=== PATIENT | male | born 1990 | race Caucasian/White ===

== ENCOUNTER 2020-12-21 06:18 | Inpatient (IN) | payer OTHER, SELFPAY ==
[2020-12-21] VITALS (92 sets, daily range): BP systolic 103–154; BP diastolic 50–98; PULSE 97–165; RESP 16–45; TEMP 36.1–36.8; O2SAT 89–98
--- NOTE | 2020-12-21 06:19 | ED.GENADUL_ITS ---
Discharge Plan Disposition Patient Disposition: [facility] INPATIENT Condition: Serious Discharge Details Clinical Impression: Alcohol withdrawal, Alcoholic hepatitis, Hypomagnesemia, Hypokalemia Primary Care Provider: None,None ED Provider: Abundio Bearden Frederica Jesús and New Rx's Prescriptions: No Action ibuprofen [Motrin] 800 mg Tablet 800 mg PO BID PRN PRNRF: 0 prednisone 20 mg Tablet 20 mg PO BID RF: 0 Medical Decision Making Patient presenting with acute alcohol withdrawal with evidence of alcohol hepatitis given his scleral icterus. IV established and banana bag is started. Laboratory studies sent and EKG done. 2 mg Ativan IV given initially. Did not proceed with phenobarbital given concern for liver dysfunction. EKG is unremarkable. Laboratory studies significant for hypomagnesemia, hypokalemia, thrombocytopenia, elevated LFTs. He has responded to the 2mg of Ativan. Plan a second dose of 2 mg Ativan. Case discussed with hospitalist. Patient accepted for admission to the ICU for further management. Lab Data Lab results reviewed: Yes I reviewed the patient's lab results. ECG Data Attestation: I personally reviewed and interpreted this ECG (s) as follows: Prior ECG tracings: not available for review Interpretation: see EKG HPI General Mode of arrival: ambulatory . Date/Time Provider Initiated Documentation: 12/21/20 06:18 . Limitations to Documentation: no limitations . Information obtained by: patient, family and RN notes reviewed . HPI Narrative: Patient is brought in for evaluation of alcohol withdrawal. Patient just moved up here to be with his brother this week. He has chronic neck pain with left upper extremity radiculopathy for which he takes ibuprofen, cyclobenzaprine, prednisone. He also at this point has been drinking almost a case of beer a day over the last month or so. Prior to that he was drinking half a case. Over the last [address] has cut [address] back to the point where he only had 1-2 yesterday. His brother has noticed that his eyes are turning yellow. This morning patient is extremely anxious, nauseated, shaky. He denies any chest pain or shortness of breath. He denies fever. He has no vomiting or abdominal pain. Denies any significant medical problems other than the neck problem. Denies any other drug use. Does not smoke but he does chew tobacco. Related Data Home Medications Medication Instructions Recorded Confirmed ibuprofen [Motrin] 800 mg PO BID PRN PRN 12/21/20 12/21/20 prednisone 20 mg PO BID 12/21/20 12/21/20 Allergies Allergy/AdvReac Type Severity Reaction Status Date / Time cefaclor [From Ceclor] Allergy Skin Rash Unverified 12/21/20 06:32 Review of Systems Narrative: 02/05 Review of Systems completed and is negative except as stated above in HPI (Systems reviewed: Const, Eyes, ENT, Resp, CV, GI, , MSK, Skin, Neuro) [facility] Medical History Cervical radiculopathy Surgical History No significant past surgical history Social History Smoking/Tobacco Use Status: Current-Occasional Tobacco Type: smokeless tobacco Smoking risk assessment performed?: Yes Alcohol Intake: current Alcohol Intake frequency: 3 or more drinks per day Alcohol type: beer and hard liquor Drug use: Never Substance use type: does not use Do you feel safe at home: Yes Do you feel safe in your relationship?: Yes Exam Narrative Exam Narrative: Const: WDWN male quite anxious and jittery. HEENT: NC/AT. Normal facial exam. Eyes: Normal conjunctiva but scleral icterus. Neck: Supple. Trachea midline. Lungs: Normal respiratory effort. Lungs are clear. Cor: RRR without murmur/gallop. Good radial pulses. GI: Soft. NT/ND. Neuro: A+O x 3. Normal speech, mentation, gait. Cranial nerves II - XII grossly intact. No gross motor or sensory deficit. Ext: No C/C/E. Skin: Warm and dry without rash. Critical Care Time Critical Care Time Critical Care Time: Yes Total Critical Care Time: 45 Attestation: Upon my evaluation, this patient had a high probability of imminent or life- threatening deterioration, which required my direct attention, intervention, and personal management. I have personally provided 45 minutes of critical care time exclusive of time spent on separately billable procedures. Time includes review of laboratory data, radiology results, discussion with consultants, and monitoring for potential decompensation. Interventions were performed as documented above.
--- NOTE | 2020-12-21 06:45 | RT.EKG_ITS ---
APPROVED REPORT Exam: Resting ECG Reason for Exam: withdrawal Patient Location: E HR:98 bpm ECG Measurements Heart Rate 98 AXIS WA 197 P 41 QRSd 94 QRS 19 QT 359 T 6 QTc 459 Conclusion Sinus rhythm...normal P axis, V-rate 60- 99 Borderline prolonged WA interval...WA >197, V-rate 91-120 Normal [place] I have reviewed and interpreted ECG and agree with software generated interpretation.
[2020-12-21 07:00] LABS: Abs Immature Grans 0.02 10^3/uL (0.0-0.06); Absolute Basophil Count 0.09 10^3/uL (0.0-0.2); Absolute Eosinophil Count 0.39 10^3/uL (0.0-0.7); Absolute Lymphocyte Count 1.85 10^3/uL (1.2-3.4); Absolute Monocyte Count 0.88 10^3/uL (0.1-0.8); Absolute Neutrophil Count 3.66 10^3/uL (1.2-6.7); Basophils % 1.3; Eosinophils % 5.7; HCT 46.2 % (40.0-50.0); HGB 15.9 g/dL (13.5-17.5); Immature Grans % 0.3; Lymphocytes % 26.9; MCHC 34.4 % (32.0-36.0); MCV 98.9 fL (80-95); MPV 9.5 fL (8.0-11.0); Monocytes % 12.8; Nucleated RBC 0 %; Platelet Count 124 10^3/uL (130-400); RBC 4.67 10^6/uL (4.36-5.78); RDW 12.1 % (11.8-14.1); RDW-SD 44.1 fL; WBC 6.89 10^3/uL (4.4-10.8)
[2020-12-21] MEDS: LORazepam 2 MG/ML VIAL IVP ×4 (07:00→09:46)
[2020-12-21 07:02] LABS: Bilirubin Small (Negative); Blood Negative (Negative); Clarity Clear (Clear); Glucose Negative (Negative); Ketones Trace mg/dL (Negative); Leukocyte Esterase Negative (Negative); Nitrite Negative (Negative); Specific Gravity 1.025 (1.005-1.025); Urobilinogen >=8.0 EU/dL (Up TO 0.2); pH 6.5 (5-8)
[2020-12-21] MEDS: Thiamine 200 MG/2 ML VIAL (07:10)
[2020-12-21] MEDS: Folic Acid 50 MG/10 ML VIAL (07:10)
[2020-12-21] MEDS: MAGNESIUM SULFATE 8.12 MEQ, MULTIVITAMIN 10 ML, THIAMINE 100 MG, FOLIC ACID 1 MG in Nor... 168.867 MG IV (07:11)
[2020-12-21 07:12] LABS: INR 1.2 (0.9-1.1); Prothrombin Time 12.2 sec (9.3-11.0)
[2020-12-21 07:15] LABS: Magnesium 1.2 mg/dL (1.8-2.4)
[2020-12-21 07:18] LABS: *AMPHETAMINES SCREEN URINE Negative (Negative); *BARBITURATES SCREEN URINE Negative (Negative); *BENZODIAZEPINES SCREEN URINE Negative (Negative); ALT 79 U/L (16-63); AST 111 U/L (15-37); Albumin 3.4 g/dL (3.4-5.0); Alkaline Phosphatase 168 U/L (46-116); Anion Gap 9.6 mmol/L (3-11); BUN 11 mg/dL (7-18); Bilirubin, Direct 1.7 mg/dL (0.0-0.2); Bilirubin, Total 3.4 mg/dL (0.2-1.0); CO2 28.4 mmol/L (21.0-32.0); CREATININE 0.8 mg/dL (0.70-1.30); Calcium 8.9 mg/dL (8.5-10.1); Cannabinoids THC Negative (Negative); Chloride 102 mmol/L (98-107); Cocaine Screen,Urine Negative (Negative); Glucose 98 mg/dL (74-106); Lipase 91 U/L (73-393); METHADONE URINE SCREEN Negative (Negative); OPIATES URINE SCREEN Negative (Negative); Potassium 3.1 mmol/L (3.5-5.1); Sodium 140 mmol/L (136-145); Total Protein 7.7 g/dL (6.4-8.2)
[2020-12-21 07:20] LABS: ETHANOL BLOOD < 3.0 mg/dL (<3); Tricyclic Antidepressants Positive (Negative)
[2020-12-21 08:06] LABS: Source Nasal/Nares
[2020-12-21] MEDS: Midazolam 2 MG/2 ML VIAL 1 MG IVP (08:24)
[2020-12-21 08:58] LABS: COVID-19 PCR Negative (Negative)
[2020-12-21] MEDS: Normal Saline Flush 10 ML SYR IVP ×5 (09:46→19:38)
[2020-12-21] MEDS: Potassium Chloride 20 MEQ TABCR 40 MEQ PO (09:47)
[2020-12-21] MEDS: predniSONE 20 MG TAB PO (09:47)
--- NOTE | 2020-12-21 09:59 | W.PM.HP.N ---
Date of service: 12/21/20 Time of Service: 09:30 Assessment and Plan Assessment and plan (1) Alcohol withdrawal: Status: Acute Assessment and plan: Admitted to ICU on CIWA with prn lorazepam and scheduled librium. Required diazepam. However, symptoms have escalated to the point that we have to consider alternative strategies. The patient is now in 4 pt restraints and combative. Phenobarb is not absolutely contraindicated based on his mild alcoholic hepatitis with discriminant function score of 8. Will transition to low dose boluses of phenobarbital. Continue to monitor in the ICU. (2) Alcoholic hepatitis: Status: Acute Assessment and plan: Discriminant function score of 8.9 - does not qualify for steroids. Will monitor LFTs. Obtain hepatitis studies and US RUQ when more behaviorally appropriate. (3) Hypokalemia: Status: Acute Assessment and plan: Replete, recheck in am (4) Hypomagnesemia: Status: Acute Assessment and plan: Replete, recheck in am. (5) Cervical radiculopathy: Status: Chronic Assessment and plan: Continue home therapy (6) DVT prophylaxis: Status: Acute Assessment and plan: SC lovenox (7) Discharge planning issues: Status: Acute Assessment and plan: Full code total critical Care time 60 minutes. History of Present Illness History of Present Illness Chief Complaint: Alcohol withdrawal Narrative: Mr Jordan is 29 year old male with PMHx of alcohol abuse without known h/o prior EtOH w/d seizures and who is undergoing treatment for LUE radiculopathy, who has been trying to decrease his alcohol intake and had enrolled into a program with a sponsor, who cannot clearly tell me when his last drink was, who presented to [facility] ED today with symptoms of alcohol withdrawal (tremors, confusion, anxiety) and a CIWA score of 31. Because he was jaundiced and had evidence of alcoholic hepatitis on labs, he was initiated on CIWA with prn lorazepam rather than phenobarbital in the ED. ICU admission was requested. The patient is A&Ox1 at the time of my evaluation. He is able to tell me he is vaccinated (very early on, got two shots), that he is having L-sided neck and arm pain. He denies chest pain, shortnes sof breath, abdominal pain, or nausea. He has been hallucinating, both auditory and visually. History is limited due to the patient having difficulty focusing. Review of Systems All systems reviewed & are unremarkable except as noted in HPI and below [facility] Medical History (Updated 12/21/20 @ 11:07 by Yasmine Loyola MD) Alcohol abuse Cervical radiculopathy Surgical History No significant past surgical history Family History (Updated 12/21/20 @ 10:26 by Yasmine Loyola MD) Other Family history unobtainable due to patient's condition Social History (Updated 12/21/20 @ 10:27 by Yasmine Loyola MD) Smoking/Tobacco Use Status: Current-Occasional Tobacco Type: smokeless tobacco Smoking risk assessment performed?: Yes Alcohol Intake: current Alcohol Intake frequency: 3 or more drinks per day Alcohol type: beer and hard liquor Details: The patient cannot tell me when his last drink was. Drug use: Never Substance use type: does not use Do you feel safe at home: Yes Do you feel safe in your relationship?: Yes Meds Allergies and Home Medications Allergies Allergy/AdvReac Type Severity Reaction Status Date / Time cefaclor [From Ceclor] Allergy Skin Rash Unverified 12/21/20 06:32 Home Medications Medication Instructions Recorded Confirmed Type cyclobenzaprine [Flexeril] mg 12/21/20 History ibuprofen [Motrin] 800 mg PO BID PRN PRN 12/21/20 12/21/20 History prednisone 20 mg PO BID 12/21/20 12/21/20 History Exam Narrative Exam Narrative: General: Obese male who is tremulous, agitated, trying to get out of bed, A&Ox1, having difficulty focusing on questions and whose answers are not always sensical, hallucinating Neurological: A&Ox1, tremulous, delirious Psychiatric: agitated, violent Skin: wright vs Jaundiced HEENT: Atraumatic, normocephalic, EOMI, dry MM, slight scleral icterus, clear oropharynx, poor dental hygiene, no submandibular or cervical lymphadenopathy, no goiter or JVD Cardiovascular: RRR, tachycardic, no m/r/g Lungs: CTAB Gastrointestinal: soft, nontender, nondistended Genitourinary: deferred Extremities: no edema BLE's, 2+ pedal pulses BLEs Results Imaging Abdominal ultrasound report/results: pending Additional studies: EKG: ST, HR 98, no acute ischemia Labs Result diagrams: 12/21/20 06:50 12/21/20 06:50 Labs: Laboratory Results - last 24 hr 12/21/20 12/21/20 12/21/20 06:50 06:50 06:50 WBC RBC Hgb Hct MCV MCH MCHC RDW Plt Count MPV Immature Gran % Neutrophils % Lymphocytes % Monocytes % Eosinophils % Basophils % Nucleated RBC % Absolute Neutrophils Absolute Lymphocytes Absolute Monocytes Absolute Eosinophils Absolute Basophils PT 12.2 H INR 1.2 H Sodium 140 Potassium 3.1 L Chloride 102 Carbon Dioxide 28.4 Anion Gap 9.6 BUN 11 Creatinine 0.8 Estimated GFR/1.73 m2 >= 60.00 Glucose 98 Calcium 8.9 Magnesium 1.2 L Total Bilirubin 3.4 H Conjugated Bilirubin 1.7 H AST 111 H ALT 79 H Alkaline Phosphatase 168 H Total Protein 7.7 Albumin 3.4 Lipase 91 Urine Color Urine Clarity Urine pH Ur Specific [place] Urine Protein Urine Ketones Urine Blood Urine Nitrite Urine Bilirubin Urine Urobilinogen Ur Leukocyte Esterase Urine Glucose Urine Opiates Screen Urine Methadone Screen Ur Barbiturates Screen Ur Tricyclics Screen Ur Amphetamines Screen U Benzodiazepines Scrn Urine Cocaine Screen Ur THC Screen Ethyl Alcohol < 3.0 COVID-19 Source SARS-CoV-2 (PCR) 12/21/20 12/21/20 12/21/20 06:50 06:50 06:50 WBC 6.89 RBC 4.67 Hgb 15.9 Hct 46.2 MCV 98.9 H MCH 34.0 H MCHC 34.4 RDW 12.1 Plt Count 124 L MPV 9.5 Immature Gran % 0.3 Neutrophils % 53.0 Lymphocytes % 26.9 Monocytes % 12.8 Eosinophils % 5.7 Basophils % 1.3 Nucleated RBC % 0 Absolute Neutrophils 3.66 Absolute Lymphocytes 1.85 Absolute Monocytes 0.88 H Absolute Eosinophils 0.39 Absolute Basophils 0.09 PT INR Sodium Potassium Chloride Carbon Dioxide Anion Gap BUN Creatinine Estimated GFR/1.73 m2 Glucose Calcium Magnesium Total Bilirubin Conjugated Bilirubin AST ALT Alkaline Phosphatase Total Protein Albumin Lipase Urine Color Yellow Urine Clarity Clear Urine pH 6.5 Ur Specific [place] 1.025 Urine Protein Negative Urine Ketones Trace H Urine Blood Negative Urine Nitrite Negative Urine Bilirubin Small H Urine Urobilinogen >=8.0 Ur Leukocyte Esterase Negative Urine Glucose Negative Urine Opiates Screen Negative Urine Methadone Screen Negative Ur Barbiturates Screen Negative Ur Tricyclics Screen Positive A Ur Amphetamines Screen Negative U Benzodiazepines Scrn Negative Urine Cocaine Screen Negative Ur THC Screen Negative Ethyl Alcohol COVID-19 Source SARS-CoV-2 (PCR) 12/21/20 07:58 WBC RBC Hgb Hct MCV MCH MCHC RDW Plt Count MPV Immature Gran % Neutrophils % Lymphocytes % Monocytes % Eosinophils % Basophils % Nucleated RBC % Absolute Neutrophils Absolute Lymphocytes Absolute Monocytes Absolute Eosinophils Absolute Basophils PT INR Sodium Potassium Chloride Carbon Dioxide Anion Gap BUN Creatinine Estimated GFR/1.73 m2 Glucose Calcium Magnesium Total Bilirubin Conjugated Bilirubin AST ALT Alkaline Phosphatase Total Protein Albumin Lipase Urine Color Urine Clarity Urine pH Ur Specific [place] Urine Protein Urine Ketones Urine Blood Urine Nitrite Urine Bilirubin Urine Urobilinogen Ur Leukocyte Esterase Urine Glucose Urine Opiates Screen Urine Methadone Screen Ur Barbiturates Screen Ur Tricyclics Screen Ur Amphetamines Screen U Benzodiazepines Scrn Urine Cocaine Screen Ur THC Screen Ethyl Alcohol COVID-19 Source Nasal/Nares SARS-CoV-2 (PCR) Negative Last Vital Signs Temp 36.6 C 12/21/20 06:22 Pulse 102 H 12/21/20 07:45 Resp 17 12/21/20 08:00 BP 146/97 H 12/21/20 07:30 Pulse Ox 95 12/21/20 07:40
[2020-12-21] MEDS: diazePAM 10 MG/2 ML SYR IVP ×3 (10:12→10:37)
[2020-12-21] MEDS: chlordiazePOXIDE 25 MG CAP PO (10:24)
[2020-12-21] MEDS: PHENobarbital 130 MG/ML VIAL IVP ×13 (10:55→23:29)
[2020-12-21] MEDS: Enoxaparin 40 MG/0.4 ML SYR SC (11:43)
[2020-12-21] MEDS: Haloperidol 5 MG/ML VIAL 4 MG IM (13:18)
[2020-12-21] MEDS: Bacitracin 1 PACKET (13:40)
[2020-12-21] MEDS: MAGNESIUM SULFATE 4 GM/100 ML BAG IVPB (13:53)
[2020-12-21] MEDS: Lactated Ringers 1,000 ML 150 ML IV ×2 (13:54→21:34)
[2020-12-21] MEDS: Pantoprazole 40 MG VIAL IVP (17:34)
[2020-12-21] MEDS: methylPREDNISolone SUCC 40 MG VIAL 20 MG IVP (19:37)
[2020-12-21] MEDS: Bacitracin 1 PACKET TP (19:38)
[2020-12-21] MEDS: Ketorolac 30 MG/ML VIAL IVP (19:38)
[2020-12-22] VITALS (45 sets, daily range): BP systolic 116–149; BP diastolic 74–95; PULSE 93–128; RESP 14–27; TEMP 36–37.2; O2SAT 90–96
--- NOTE | 2020-12-22 | DI.US_ITS ---
Exam(s) US ABDOMEN EXAM: US ABDOMEN CLINICAL HISTORY: transaminitis TECHNIQUE: Ultrasound abdomen performed using standard protocol. COMPARISON: No exams were available for comparison FINDINGS: Examination limited due to decreased patient cooperation. ABDOMINAL AORTA AND IVC: Visualized portions normal caliber. PANCREAS: Normal where visualized. LIVER: There is diffuse increased echogenicity of the liver consistent with fatty infiltration. The liver measures 18.3 cm long. Hepatopedal flow in the Portal Vein. GALLBLADDER: No evidence of cholelithiasis. No evidence of wall thickening. No pericholecystic fluid identified. BILIARY SYSTEM: Common bile duct measures < 7 mm. No intrahepatic biliary ductal dilation. CRISTINA'S SIGN: Negative. KIDNEYS: Kidneys are symmetric in size. No evidence of renal calculi. No evidence of hydronephrosis. No renal mass or cyst identified. SPLEEN: The spleen measures 14.1 cm long. ASCITES: None seen. IMPRESSION: 1. Hepatosplenomegaly. 2. Hepatic steatosis. DATA REPOSITORY:
[2020-12-22] MEDS: Normal Saline Flush 10 ML SYR IVP ×3 (00:16→21:21)
[2020-12-22] MEDS: PHENobarbital 130 MG/ML VIAL IVP ×6 (00:16→05:36)
[2020-12-22] MEDS: Lactated Ringers 1,000 ML 150 ML IV ×3 (02:15→22:12)
[2020-12-22] MEDS: dexmedeTOMidine IN 0.9 % NACL 400 MCG/100 ML BTL 5.1 MCG IVPB (06:07)
[2020-12-22 06:43] LABS: Abs Immature Grans 0.05 10^3/uL (0.0-0.06); Absolute Basophil Count 0.03 10^3/uL (0.0-0.2); Absolute Lymphocyte Count 1.55 10^3/uL (1.2-3.4); Absolute Monocyte Count 1.02 10^3/uL (0.1-0.8); Absolute Neutrophil Count 6.08 10^3/uL (1.2-6.7); Basophils % 0.3; HCT 42.4 % (40.0-50.0); HGB 14.4 g/dL (13.5-17.5); Immature Grans % 0.6; Lymphocytes % 17.8; MPV 9.5 fL (8.0-11.0); Monocytes % 11.7; Neutrophils % 69.6; Nucleated RBC 0 %; Platelet Count 134 10^3/uL (130-400); RBC 4.24 10^6/uL (4.36-5.78); RDW 12.2 % (11.8-14.1); RDW-SD 44.9 fL; WBC 8.73 10^3/uL (4.4-10.8)
[2020-12-22 07:00] LABS: ALT 66 U/L (16-63); AST 78 U/L (15-37); Alkaline Phosphatase 138 U/L (46-116); Anion Gap 11.3 mmol/L (3-11); BUN 13 mg/dL (7-18); Bilirubin, Direct 1.4 mg/dL (0.0-0.2); Bilirubin, Total 2.9 mg/dL (0.2-1.0); CO2 24.7 mmol/L (21.0-32.0); CREATININE 0.8 mg/dL (0.70-1.30); Calcium 8.2 mg/dL (8.5-10.1); Chloride 106 mmol/L (98-107); Glucose 100 mg/dL (74-106); Potassium 3.5 mmol/L (3.5-5.1); Sodium 142 mmol/L (136-145); Total Protein 7.1 g/dL (6.4-8.2)
[2020-12-22 07:47] LABS: Folate 12.2 ng/mL (8.6-20.0); Vitamin B12 1157 pg/mL (193-986)
--- NOTE | 2020-12-22 08:00 | RT.EKG_ITS ---
APPROVED REPORT Exam: Resting ECG Reason for Exam: QT prolongation Patient Location: I HR:103 bpm ECG Measurements Heart Rate 103 AXIS AL 206 P 39 QRSd 88 QRS 44 QT 349 T 19 QTc 458 Conclusion Sinus tachycardia...rate> 99 Prolonged AL interval...AL >205, V-rate 91-120
--- NOTE | 2020-12-22 08:14 | PGE_ITS ---
Date of Service Date of service: 12/22/20 Time of Service: 10:27 Assessment and Plan Assessment and plan (1) Alcohol withdrawal: Status: Acute Assessment and plan: Maxed out on phenobarbital and, therefore, should not seize. Will manage symptoms with antipsychotics this am. MOnitor respiratory status - may require respiratory support. Qualifiers: Complication of substance-induced condition: with perceptual disturbance Qualified Code(s): F10.232 - Alcohol dependence with withdrawal with perceptual disturbance (2) Alcoholic hepatitis: Status: Acute Assessment and plan: LFTs are actually better. Discriminant function score indicates good prognosis. Await hepatitis studies. Await read of US RUQ. (3) Hypokalemia: Status: Acute Assessment and plan: Resolved, recheck in am (4) Hypomagnesemia: Status: Acute Assessment and plan: Resolved, recheck in am. (5) Cervical radiculopathy: Status: Chronic Assessment and plan: Continue home therapy Will taper steroid dose (6) DVT prophylaxis: Status: Acute Assessment and plan: SC lovenox (7) Discharge planning issues: Status: Acute Assessment and plan: Full code total critical Care time [address] Hartley Subjective Subjective Interval history since last seen: Maxed out on phenobarbital. Ended up on precedex gtt at 6 am. Since then, asleep. Changed over to zyprexa. The patient is not able to answer questions this morning. He is asleep, arousable to sternal rub. Exam Narrative Exam Narrative: General: Obese male, no longer tremulous, asleep, arousable to sternal rub, not awake enough to answer questions or follow comman ds, no in crease in respiratory effort noted, breathing regularly. Does have some abdominal breathing. HEENT: EOMI, dry MM Cardiovascular: RRR, less tachycardic (low 100s), no m/r/g Lungs: CTAB Gastrointestinal: soft, nontender, nondistended Genitourinary: has a amin Extremities: no edema BLE's, 2+ pedal pulses BLEs, restraints on all 4 extremities Objective Last Vital Signs Temp 36.8 C 12/21/20 23:25 Pulse 109 H 12/22/20 06:00 Resp 20 12/22/20 06:00 BP 138/77 12/22/20 06:00 Pulse Ox 92 12/22/20 06:00 Laboratory Results - last 24 hr 12/21/20 12/22/20 12/22/20 07:58 06:27 06:27 WBC RBC Hgb Hct MCV MCH MCHC RDW Plt Count MPV Immature Gran % Neutrophils % Lymphocytes % Monocytes % Eosinophils % Basophils % Nucleated RBC % Absolute Neutrophils Absolute Lymphocytes Absolute Monocytes Absolute Eosinophils Absolute Basophils Sodium 142 Potassium 3.5 Chloride 106 Carbon Dioxide 24.7 Anion Gap 11.3 H BUN 13 Creatinine 0.8 Estimated GFR/1.73 m2 >= 60.00 Glucose 100 Calcium 8.2 L Magnesium 2.0 Total Bilirubin 2.9 H Conjugated Bilirubin 1.4 H AST 78 H ALT 66 H Alkaline Phosphatase 138 H Total Protein 7.1 Albumin 3.0 L Vitamin B12 1157 H Folate 12.2 SARS-CoV-2 (PCR) Negative 12/22/20 06:27 WBC 8.73 RBC 4.24 L Hgb 14.4 Hct 42.4 MCV 100.0 H MCH 34.0 H MCHC 34.0 RDW 12.2 Plt Count 134 MPV 9.5 Immature Gran % 0.6 Neutrophils % 69.6 Lymphocytes % 17.8 Monocytes % 11.7 Eosinophils % 0.0 Basophils % 0.3 Nucleated RBC % 0 Absolute Neutrophils 6.08 Absolute Lymphocytes 1.55 Absolute Monocytes 1.02 H Absolute Eosinophils 0.00 Absolute Basophils 0.03 Sodium Potassium Chloride Carbon Dioxide Anion Gap BUN Creatinine Estimated GFR/1.73 m2 Glucose Calcium Magnesium Total Bilirubin Conjugated Bilirubin AST ALT Alkaline Phosphatase Total Protein Albumin Vitamin B12 Folate SARS-CoV-2 (PCR)
[2020-12-22] MEDS: OLANZapine 10 MG VIAL 5 MG IM ×2 (09:28→21:21)
[2020-12-22] MEDS: methylPREDNISolone SUCC 40 MG VIAL 20 MG IVP (09:28)
[2020-12-22] MEDS: MULTIVITAMIN 10 ML, THIAMINE 100 MG, FOLIC ACID 1 MG in DEXTROSE 5%-0.45% SALINE 1,000 ML 150 ML IV (09:29)
[2020-12-22] MEDS: Water,Injection,Sterile 10 ML VIAL (09:29)
--- NOTE | 2020-12-22 10:16 | PUCC_ITS ---
General Date of Service Date of service: 12/22/20 Time of Service: 08:00 Reason for Admission to ICU: Alcohol withdrawal and agitation Assessment and Plan Assessment and plan (1) Alcohol withdrawal: Status: Acute Qualifiers: Complication of substance-induced condition: with perceptual disturbance Qualified Code(s): F10.232 - Alcohol dependence with withdrawal with perceptual disturbance (2) Alcoholic hepatitis: Status: Acute Qualifiers: Ascites presence: without ascites Qualified Code(s): K70.10 - Alcoholic hepatitis without ascites (3) Macrocytosis: Status: Acute (4) Coagulopathy: Status: Acute (5) Hypokalemia: Status: Acute (6) Hypomagnesemia: Status: Acute (7) Abnormal albumin: Status: Acute (8) Phenobarbital toxicity: Status: Acute Qualifiers: Encounter type: initial encounter Injury intent: accidental or unintentional Qualified Code(s): T42.3X1A - Poisoning by barbiturates, accidental (unintentional), initial encounter (9) Alcohol withdrawal hallucinosis: Status: Acute (10) Agitation: Status: Acute Assessment and plan: This is a 29-year-old gentleman who was admitted to the ICU for agitation and alcohol withdrawal in the setting of attempting to cut down on alcohol intake. He does not have a history of alcohol withdrawal seizures however on admission did admit to hallucinations consistent with the development of alcoholic hallucinations. He was initially treated with significant amounts of benzodiazepines and was subsequently treated with very high doses of phenobarbital (30 mg/kg). Although phenobarbital is not contr aindicated in liver disease conservative dosing must be employed as well as obtaining phenobarbital levels in order to avoid toxicity or overdose. Based on the patient's phenobarbital level this morning he was overdosed however his vital signs are stable and the only manifestation of this is continued sedation. In patients with liver dysfunction on maximum dose of phenolbarbital would be 15 to 20 mg/kg. He is certainly treated for any alcohol withdrawal and thus any continued agitation likely reflects an alternative process that should be managed differently. Recommendations Pulmonary: No acute concerns - maintaining airway currently Cardiac: No acute concerns QTc is ok this morning Renal: - recommend checking phos level - at risk for refeeding syndrome given EtOH use Hypokalemia - recommend repletement to 4.0 Hypomagnesemia - recommend repletement to 2.0 Hypocalcemia - continue to monitor I&O: Intake & Output 12/19/20 12/20/20 12/21/20 12/22/20 23:59 23:59 23:59 23:59 Intake Total 2478.2 / 2478.2 1702.5 / 1702.5 Output Total 1175 / 1175 400 / 400 Balance 1303.2 / 1303.2 1302.5 / 1302.5 Weight 102 kg 102.2 kg Daily Fluid Goal:: Even GI Nutrition: Nutrition - would not recommend any further banana bags - typically no further benefit after 1 bag - recommend changing fluids to LR 75cc - recommend PO thiamine, folate and MVI when able to swallow - recommend diet when safe Alcoholic Hepatitis - Madri score is 9 on admission, no indications for glucocorticoid therapy - would discontinue methyprednisilone as this will worsen his agitation - outpatient hepatology consultation - await final U/S read Albumin Deficiency - PO intake when safe Infectious Disease: No acute concerns - aspiration precautions Hematologic: Macrocytosis - MVI when able Coagulopathy - due to liver failure - PO diet when able Neurologic: Alcohol Withdrawl - s/p supratherapeutic doses of phenobarbital - do not give any further doses of either phenobarbital or benzo's - recheck phenobarb level tomorrow - would stop Precedex drip - recommend IV Zyprexa 5mg bid as needed - recommend melatonin at night once patient is less sedated Agitation/Delirium - again, as above, avoid further benzo's and phenobarb - stop Precedex - Zyprexa bid - delirium prevention - lights on during day and off at night, melatonin at night if patient more awake - recommend discontinuing methylprednisilone - discontinue 4 point restraints Endocrine: No acute concerns - daily glucose Lines: PIV Prophylaxis: Lovenox for DVT ppx No clear indication for GI ppx - would discontinue I spent a total of 45 minutes with this patient including bedside assessment, coordination of care with the hospitalist service, rounding with nursing and respiratory therapy, chart review and documentation. Code Status: Resuscitation Status Full Code Subjective Critical and life-threatening events over the past 24 hours: This is a 29-year-old gentleman with a medical history of alcohol abuse with no known prior history of withdrawal seizures who has been actively trying to decrease his alcohol intake and even enrolled into a program with a sponsor however it is unknown when his last drink was. He presented to the emergency department with alcohol withdrawal including tremors, confusion, and anxiety and an elevated CIWA score. He had evidence of hepatitis on labs and so was started on alcohol withdrawal protocol with lorazepam in the ED. Based on the H&P completed by the admitting hospitalist he has been having hallucinations both auditory and visually however he was having difficulty focusing and so a full history was difficult to obtain. Based on chart review he required a significant amount of benzodiazepines and was given a total of 30mg/kg of phenobarb in addition to multiple doses of Haldol and a Precedex drip. He has had an abdominal ultrasound completed that on my read does not show any ascites. My assessment this morning the patient is completely sedated to a RASS of -3 on a Precedex drip. There are no signs of alcohol withdrawal currently. He is unable to answer any my questions and barely arouses when I try to wake him. Exam Const General: other (Sedated) Nutritional Appearance: well nourished [facility] Head: normocephalic Ears: external ears normal and no periauricular adenopathy General nose exam: nasal mucous membranes and turbinates normal Face and sinus: sinuses nontender Mouth: oropharynx normal and mucous membranes dry Teeth and gingiva: caries Eyes General: appearance normal, both eyes and all related structures Pupils: PERRL Neck Neck: normal visual inspection and no lymphadenopathy Chest Chest: normal inspection of the chest Resp Effort & Inspection: normal respiratory effort Auscultation: clear to auscultation bilaterally, no rales, no rhonchi and no wheezes Cardio Rate: regular rate Rhythm: regular rhythm Heart Sounds: S1 normal, S2 normal and no murmurs Pulses: radial pulses present bilaterally GI Inspection: normal to inspection Palpation: soft Skin General skin exam: no rashes or lesions noted Neuro General: patient alert, patient awake and patient oriented x3 Extrem General: no clubbing, cyanosis or edema Psych Mental Status: mental status grossly normal Affect: normal affect Attitude: cooperative Most Recent VS/Results Last Vital Signs Temp 36.8 C 12/21/20 23:25 Pulse 109 H 12/22/20 06:00 Resp 20 12/22/20 06:00 BP 138/77 12/22/20 06:00 Pulse Ox 92 12/22/20 06:00 Laboratory Results - last 24 hr 12/22/20 12/22/20 12/22/20 06:27 06:27 06:27 WBC 8.73 RBC 4.24 L Hgb 14.4 Hct 42.4 MCV 100.0 H MCH 34.0 H MCHC 34.0 RDW 12.2 Plt Count 134 MPV 9.5 Immature Gran % 0.6 Neutrophils % 69.6 Lymphocytes % 17.8 Monocytes % 11.7 Eosinophils % 0.0 Basophils % 0.3 Nucleated RBC % 0 Absolute Neutrophils 6.08 Absolute Lymphocytes 1.55 Absolute Monocytes 1.02 H Absolute Eosinophils 0.00 Absolute Basophils 0.03 Sodium 142 Potassium 3.5 Chloride 106 Carbon Dioxide 24.7 Anion Gap 11.3 H BUN 13 Creatinine 0.8 Estimated GFR/1.73 m2 >= 60.00 Glucose 100 Calcium 8.2 L Magnesium 2.0 Total Bilirubin 2.9 H Conjugated Bilirubin 1.4 H AST 78 H ALT 66 H Alkaline Phosphatase 138 H Total Protein 7.1 Albumin 3.0 L Vitamin B12 1157 H Folate 12.2 Phenobarbital 12/22/20 06:27 WBC RBC Hgb Hct MCV MCH MCHC RDW Plt Count MPV Immature Gran % Neutrophils % Lymphocytes % Monocytes % Eosinophils % Basophils % Nucleated RBC % Absolute Neutrophils Absolute Lymphocytes Absolute Monocytes Absolute Eosinophils Absolute Basophils Sodium Potassium Chloride Carbon Dioxide Anion Gap BUN Creatinine Estimated GFR/1.73 m2 Glucose Calcium Magnesium Total Bilirubin Conjugated Bilirubin AST ALT Alkaline Phosphatase Total Protein Albumin Vitamin B12 Folate Phenobarbital 57.0 H* Review of Systems Unobtainable due to mental status
--- NOTE | 2020-12-22 10:55 | PDOC.CMIN ---
- If Service Date Differs Date of service: 12/22/20 Time of Service: 10:55 Care Management Initial Assess REASON FOR HOSPITALIZATION:: Alcoholic withdrawal, alcoholic hepatitis PAST MEDICAL HISTORY/PAST SURGICAL HISTORY:: Alcohol abuse. Cervical radiculopathy PREVIOUS FUNCTIONAL STATUS/SOCIAL/FAMILY SUPPORTS:: Hussein resides with friends in [place], [place]. He recently relocated from the [facility]. No further information available at this time. CURRENT FUNCTIONAL STATUS:: Sleeping soundly when CM attempts to meet with him, RN reports it unlikely Hussein will be alert to meet with this remote mortgage underwriter. CM continues to follow. ADVANCE DIRECTIVES:: None on file at [facility]. Has patient been provided with info about the portal/API?: No Did the patient sign up for the portal?: No CODE STATUS:: Full Code INSURANCE COVERAGE / FINANCIAL ISSUES:: [facility] CURRENT HOME/COMMUNITY SERVICES/EQUIPMENT:: None at this time. PRIMARY CARE PHYSICIAN:: No local. POTENTIAL DISCHARGE NEEDS:: PCP attachment. Review of [facility] supports. PATIENT/FAMILY EDUCATION NEEDS:: Review discharge instructions, discuss [employer]. ANTICIPATED BARRIERS TO DISCHARGE:: None identified at this time. TRANSPORTATION:: Via private vehicle with friends. PLAN:: Hussein continues to be closely monitored and treated in the ICU. CM continues to follow, anticipate once alert, CM will review current [facility] supports and possibilities for PCP attachment.
[2020-12-22] MEDS: Bacitracin 1 PACKET TP (11:04)
[2020-12-22] MEDS: Enoxaparin 40 MG/0.4 ML SYR SC (11:40)
--- NOTE | 2020-12-22 14:24 | PHA.REVIEW ---
Pharmacy Admission Review - Admission Clinical Review (Last Updated 12/21/20 @ 10:26 by Yasmine Loyola MD) Alcohol withdrawal hallucinosis (Acute) Agitation (Acute) Phenobarbital toxicity (Acute) Abnormal albumin (Acute) Coagulopathy (Acute) Macrocytosis (Acute) Discharge planning issues (Acute) DVT prophylaxis (Acute) Alcohol withdrawal (Acute) Alcoholic hepatitis (Acute) Hypomagnesemia (Acute) Hypokalemia (Acute) cefaclor [From Ceclor] Allergy (Unverified 12/21/20 06:32) Skin Rash Resuscitation Status Full Code Height 5 ft 9 in Weight 102.2 kg - Renal Dosing Renal Dosing: BUN 13 mg/dL (7-18) 12/22/20 06:27 Creatinine 0.8 mg/dL (0.70-1.30) 12/22/20 06:27 Medications needing adjustments: Reviewed List of meds needing interventions: eCrCl 135 ml/min - Anticoagulation Anticoagulation: Hgb 14.4 g/dL (13.5-17.5) 12/22/20 06:27 Hct 42.4 % (40.0-50.0) 12/22/20 06:27 Plt Count 134 10^3/uL (130-400) 12/22/20 06:27 INR 1.2 (0.9-1.1) H 12/21/20 06:50 Creatinine 0.8 mg/dL (0.70-1.30) 12/22/20 06:27 DVT Prophylaxis: Reviewed Medications: Enoxaparin - Opiate Usage Evaluate Pain Scale/Pains Meds: N/A - Relevant Labs Sodium 142 mmol/L (136-145) 12/22/20 06:27 Potassium 3.5 mmol/L (3.5-5.1) 12/22/20 06:27 Chloride 106 mmol/L (98-107) 12/22/20 06:27 Magnesium 2.0 mg/dL (1.8-2.4) 12/22/20 06:27 Electrolytes, C-Reactive P, ESR: Reviewed - DM Control DM Control: Glucose 100 mg/dL (74-106) 12/22/20 06:27 Insulin Dosing: N/A - Heart Failure/CT EF%, MANISHA's, B-Blockers, Diuretics: N/A - BP Control BP Control: Blood Pressure 124/74 Blood Pressure 124/74 Blood Pressure 128/81 Blood Pressure 126/89 Blood Pressure 117/82 Blood Pressure 123/81 Blood Pressure 120/78 Blood Pressure 126/89 Blood Pressure 116/83 Blood Pressure 138/77 Blood Pressure 132/81 Blood Pressure 121/88 Blood Pressure 133/82 If elevated: Reviewed - Qtc Review If Elevated: Reviewed List meds needing interventions: QTc 459 on admission - IV to PO Switch IV Medications: Reviewed - Home Meds Home Med List reviewed: Reviewed - Current meds Current Medication Order Review: Reviewed (Max dose of phenobarbital given (30mg/kg) -- precedex gtt was started this AM and then stopped and changed to Zyprexa as seizures will be prevented with phenobarb in system so symptom control is best done with antipsychotics at this point) - Comments Comments/Follow Ups: Cont zyprexa 5mg IM/IV q12h PRN for continued agitation as etoh withdrawal has been treated at this point given max dosing of phenobarb; continue to monitor vitals, BMP, phenobarb serum level, AST/ALT
[2020-12-22] MEDS: Pantoprazole 40 MG VIAL IVP (17:13)
[2020-12-22] MEDS: LORazepam 2 MG/ML VIAL ×2 (22:31→22:42)
[2020-12-22] MEDS: Haloperidol 5 MG/ML VIAL (22:49)
[2020-12-23] VITALS (46 sets, daily range): BP systolic 117–181; BP diastolic 84–146; PULSE 96–134; RESP 16–34; TEMP 36.3–36.9; O2SAT 90–97
[2020-12-23] MEDS: diphenhydrAMINE 50 MG/ML VIAL IM/IVP (03:49)
[2020-12-23] MEDS: Lactated Ringers 1,000 ML 150 ML IV (05:07)
[2020-12-23] MEDS: Haloperidol 5 MG/ML VIAL IM/IV ×2 (06:37→19:08)
[2020-12-23 06:58] LABS: Magnesium 1.6 mg/dL (1.8-2.4)
[2020-12-23 07:00] LABS: Anion Gap 5.3 mmol/L (3-11); BUN 13 mg/dL (7-18); CO2 27.7 mmol/L (21.0-32.0); CREATININE 0.7 mg/dL (0.70-1.30); Calcium 8.4 mg/dL (8.5-10.1); Chloride 103 mmol/L (98-107); Glucose 83 mg/dL (74-106); Sodium 136 mmol/L (136-145)
[2020-12-23 07:06] LABS: Potassium 2.8 mmol/L (3.5-5.1)
--- NOTE | 2020-12-23 08:35 | W.PM.PROGNOT ---
Date of Service Date of service: 12/23/20 Time of Service: 12:26 Assessment and Plan Assessment and plan (1) Alcohol withdrawal: Status: Acute Assessment and plan: Maxed out on phenobarbital and, therefore, should not seize. Continue prn antipsychotics. Does not require more respiratory support than nasal canula. Qualifiers: Complication of substance-induced condition: with perceptual disturbance Qualified Code(s): F10.232 - Alcohol dependence with withdrawal with perceptual disturbance (2) Alcoholic hepatitis: Status: Acute Assessment and plan: Discriminant function score indicates good prognosis. Await hepatitis studies. US RUQ with hepatosplenomegaly and hepatic steatosis. Qualifiers: Ascites presence: without ascites Qualified Code(s): K70.10 - Alcoholic hepatitis without ascites (3) Hypokalemia: Status: Acute Assessment and plan: Replete, recheck in am (4) Hypomagnesemia: Status: Acute Assessment and plan: Replete, recheck in am. (5) Cervical radiculopathy: Status: Chronic Assessment and plan: Continue home therapy Continue steroid taper (6) DVT prophylaxis: Status: Acute Assessment and plan: SC lovenox (7) Discharge planning issues: Status: Acute Assessment and plan: Full code total critical Care time [address] Hartley Subjective Subjective Interval history since last seen: Mr Jordan states that he is feeling ok. He denies any pain. Denies headache, dizziness, chest discomfort, shortness of breath, nausea. He requests his plate. Was agitated last night. He is in 4 point restraints now and cooperative. Haldol x 2 last night, last at 6 am. Exam Narrative Exam Narrative: General: Obese male, asleep, easily arousable HEENT: EOMI, dry MM Cardiovascular: RRR, mildly tachycardic, no m/r/g Lungs: CTAB Gastrointestinal: soft, nontender, nondistended Genitourinary: has a amin Extremities: no edema BLE's, 2+ pedal pulses BLEs, restraints on all 4 extremities Objective Last Vital Signs Temp 36.3 C L 12/23/20 04:00 Pulse 102 H 12/23/20 06:00 Resp 19 12/23/20 06:00 BP 129/91 H 12/23/20 06:00 Pulse Ox 95 12/23/20 06:00 Laboratory Results - last 24 hr 12/22/20 12/23/20 12/23/20 06:27 06:25 06:25 Sodium 136 Potassium 2.8 L* Chloride 103 Carbon Dioxide 27.7 Anion Gap 5.3 BUN 13 Creatinine 0.7 Estimated GFR/1.73 m2 >= 60.00 Glucose 83 Calcium 8.4 L Magnesium 1.6 L Phenobarbital 57.0 H*
[2020-12-23] MEDS: MAGNESIUM SULFATE 4 GM/100 ML BAG IVPB (10:47)
[2020-12-23] MEDS: POTASSIUM CHLORIDE 20 MEQ/100 ML BAG 50 MEQ IVPB ×2 (10:47→13:00)
[2020-12-23] MEDS: methylPREDNISolone SUCC 40 MG VIAL 20 MG IVP (10:48)
[2020-12-23] MEDS: Bacitracin 1 PACKET TP ×3 (10:48→19:43)
--- NOTE | 2020-12-23 11:37 | PUCC_ITS ---
General Date of Service Date of service: 12/23/20 Time of Service: 08:40 Reason for Admission to ICU: Agitation Assessment and Plan Assessment and plan (1) Alcohol withdrawal: Status: Acute Qualifiers: Complication of substance-induced condition: with perceptual disturbance Qualified Code(s): F10.232 - Alcohol dependence with withdrawal with perceptual disturbance (2) Alcoholic hepatitis: Status: Acute Qualifiers: Ascites presence: without ascites Qualified Code(s): K70.10 - Alcoholic hepatitis without ascites (3) Macrocytosis: Status: Acute (4) Coagulopathy: Status: Acute (5) Hypokalemia: Status: Acute (6) Hypomagnesemia: Status: Acute (7) Abnormal albumin: Status: Acute (8) Phenobarbital toxicity: Status: Acute Qualifiers: Encounter type: initial encounter Injury intent: accidental or unintentional Qualified Code(s): T42.3X1A - Poisoning by barbiturates, accidental (unintentional), initial encounter (9) Alcohol withdrawal hallucinosis: Status: Acute (10) Agitation: Status: Acute Assessment and plan: This is a 29-year-old gentleman who was admitted to the ICU for agitation and alcohol withdrawal in the setting of attempting to cut down on alcohol intake. He does not have a history of alcohol withdrawal seizures however on admission did admit to hallucinations consistent with the development of alcoholic hallucinations. He was initially treated with significant amounts of benzodiazepines and was subsequently treated with very high doses of phenobarbital (30 mg/kg). Although phenobarbital is not contraindicated in liver disease conservative dosing must be employed as well as obtaining phenobarbital levels in order to avoid toxicity or overdose. In patients with liver dysfunction on maximum dose of phenolbarbital would be 15 to 20 mg/kg. He is certainly treated for any alcohol withdrawal and thus any continued agitation likely reflects an alternative process that should be managed differently. Recommendations Pulmonary: No acute concerns - maintaining airway currently Cardiac: No acute concerns Renal: - recommend checking phos level - at risk for refeeding syndrome given EtOH use Hypokalemia - recommend repletement to 4.0 Hypomagnesemia - recommend repletement to 2.0 Hypocalcemia - continue to monitor I&O: Intake & Output 12/20/20 12/21/20 12/22/20 12/23/20 23:59 23:59 23:59 23:59 Intake Total 2478.2 / 2478.2 3696.2 / 3696.2 1999 Output Total 1175 / 1175 1750 / 1750 350 / 350 Balance 1303.2 / 1303.2 1946.2 / 1946.2 1650 / 1650 Weight 102 kg 102.2 kg 102.8 kg Daily Fluid Goal:: Even GI Nutrition: Nutrition - would not recommend any further banana bags - typically no further benefit after 1 bag - recommend changing fluids to LR 75cc and consider discontinuing them once he takes any PO - recommend PO thiamine, folate and MVI when able to swallow - recommend diet when safe Alcoholic Hepatitis - Madri score is 9 on admission, no indications for glucocorticoid therapy - again, would discontinue methyprednisilone as this will worsen his agitation - outpatient hepatology consultation - U/S shows hepatosteatosis and hepatosplenomegaly Albumin Deficiency - PO intake when safe Infectious Disease: No acute concerns Hematologic: Macrocytosis - MVI when able Coagulopathy - due to liver failure - PO diet when able Neurologic: Alcohol Withdrawl - s/p supratherapeutic doses of phenobarbital - do not give any further doses of either phenobarbital or benzo's - would recheck phenobarb level - continue to hold Precedex gtt - recommend melatonin at night once patient is less sedated Agitation/Delirium - again, as above, avoid further benzo's and phenobarb - recommend schedule Haldol 5mg bid - recommend checking an EKG tomorrow morning - delirium prevention - lights on during day and off at night, melatonin at night if patient more awake - recommend discontinuing methylprednisilone - discontinue 4 point restraints Endocrine: No acute concerns - daily glucose Lines: PIV Prophylaxis: Lovenox for DVT ppx No clear indication for GI ppx I spent a total of 30 minutes with this patient including bedside assessment, coordination of care with the hospitalist service, rounding with nursing and respiratory therapy, chart review and documentation. Code Status: Resuscitation Status Full Code Subjective Critical and life-threatening events over the past 24 hours: He remains agitated but is off of Precedex. He did require 2 doses of Haldol overnight as the Zyprexa did not control his agitation. He is mumbling this morning to me nonsensical sentences. Exam Const General: other (Sedated) Nutritional Appearance: well nourished [facility] Head: normocephalic Ears: external ears normal and no periauricular adenopathy General nose exam: nasal mucous membranes and turbinates normal Face and sinus: sinuses nontender Mouth: oropharynx normal and mucous membranes dry Teeth and gingiva: caries Eyes General: appearance normal, both eyes and all related structures Pupils: PERRL Neck Neck: normal visual inspection and no lymphadenopathy Chest Chest: normal inspection of the chest Resp Effort & Inspection: normal respiratory effort Auscultation: clear to auscultation bilaterally, no rales, no rhonchi and no wheezes Cardio Rate: regular rate Rhythm: regular rhythm Heart Sounds: S1 normal, S2 normal and no murmurs Pulses: radial pulses present bilaterally GI Inspection: normal to inspection Palpation: soft Skin General skin exam: no rashes or lesions noted Neuro General: patient alert, patient awake and patient oriented x3 Extrem General: no clubbing, cyanosis or edema Psych Mental Status: mental status grossly normal Affect: normal affect Attitude: cooperative Most Recent VS/Results Last Vital Signs Temp 36.3 C L 12/23/20 11:10 Pulse 110 H 12/23/20 11:10 Resp 19 12/23/20 11:10 BP 145/98 H 12/23/20 10:00 Pulse Ox 93 12/23/20 11:10 Laboratory Results - last 24 hr 12/23/20 12/23/20 06:25 06:25 Sodium 136 Potassium 2.8 L* Chloride 103 Carbon Dioxide 27.7 Anion Gap 5.3 BUN 13 Creatinine 0.7 Estimated GFR/1.73 m2 >= 60.00 Glucose 83 Calcium 8.4 L Magnesium 1.6 L Review of Systems Unobtainable due to mental status
--- NOTE | 2020-12-23 12:26 | PDOC.CMPRO ---
Care Management Progress Note S/O: Hussein continues to be closely monitored and treated via CIWA and RASS protocols. He required restraints this morning and continues to be disoriented and agitated when alert. CM continues to follow. A: 29 year old male admitted to [facility] 12/21/20 for alcohol withdrawal, alcoholic hepatitis P: Hussein continues to be closely monitored and treated in the ICU. CM continues to follow, anticipate once alert, CM will review current [facility] supports and possibilities for PCP attachment.
[2020-12-23] MEDS: Enoxaparin 40 MG/0.4 ML SYR SC (13:20)
[2020-12-23 13:36] LABS: HBs Antibody, Qual Negative (See Note); HBs Antibody, Quant <3.1 mIU/mL (See Note); Hepatitis B Core Antibody Negative (Negative); Hepatitis B surface Ag Negative (Negative); Hepatitis C Ab w Rflx HCV PCR Negative (Negative)
[2020-12-23] MEDS: MULTIVITAMIN 10 ML, THIAMINE 100 MG, FOLIC ACID 1 MG in DEXTROSE 5%-0.45% SALINE 1,000 ML 150 ML IV (15:51)
[2020-12-23] MEDS: Pantoprazole 40 MG VIAL IVP (19:41)
[2020-12-24] VITALS (51 sets, daily range): BP systolic 118–159; BP diastolic 80–119; PULSE 85–117; RESP 14–34; TEMP 35.9–36.6; O2SAT 2–98
[2020-12-24] MEDS: diphenhydrAMINE 50 MG/ML VIAL IM/IVP (01:03)
[2020-12-24 06:53] LABS: Abs Immature Grans 0.02 10^3/uL (0.0-0.06); Absolute Basophil Count 0.07 10^3/uL (0.0-0.2); Absolute Eosinophil Count 0.38 10^3/uL (0.0-0.7); Absolute Monocyte Count 1.02 10^3/uL (0.1-0.8); Absolute Neutrophil Count 3.28 10^3/uL (1.2-6.7); Eosinophils % 5.6; HCT 42.9 % (40.0-50.0); HGB 14.7 g/dL (13.5-17.5); Immature Grans % 0.3; Lymphocytes % 29.5; MCH 33.9 pg (27.0-33.0); MCHC 34.3 % (32.0-36.0); MCV 98.8 fL (80-95); MPV 9.9 fL (8.0-11.0); Monocytes % 15.1; Neutrophils % 48.5; Nucleated RBC 0 %; Platelet Count 123 10^3/uL (130-400); RBC 4.34 10^6/uL (4.36-5.78); RDW 11.8 % (11.8-14.1); WBC 6.77 10^3/uL (4.4-10.8)
[2020-12-24 07:14] LABS: Anion Gap 8.3 mmol/L (3-11); BUN 12 mg/dL (7-18); CO2 26.7 mmol/L (21.0-32.0); CREATININE 0.7 mg/dL (0.70-1.30); Calcium 8.3 mg/dL (8.5-10.1); Chloride 105 mmol/L (98-107); Glucose 97 mg/dL (74-106); Sodium 140 mmol/L (136-145)
[2020-12-24 07:17] LABS: Magnesium 1.9 mg/dL (1.8-2.4)
[2020-12-24 07:24] LABS: Potassium 2.9 mmol/L (3.5-5.1)
--- NOTE | 2020-12-24 08:21 | W.PM.PROGNOT ---
Date of Service Date of service: 12/24/20 Time of Service: 14:07 Assessment and Plan Assessment and plan (1) Alcohol withdrawal: Status: Acute Assessment and plan: Maxed out on phenobarbital and, therefore, should not seize. Continue scheduled and prn antipsychotics (scheduled haldol, prn zyprexa as per Dr Hartley's recommendations). Does not require more respiratory support than nasal canula. Qualifiers: Complication of substance-induced condition: with perceptual disturbance Qualified Code(s): F10.232 - Alcohol dependence with withdrawal with perceptual disturbance (2) Alcoholic hepatitis: Status: Acute Assessment and plan: Discriminant function score indicates good prognosis. No role for steroids. Hepatitis panel negative. US RUQ with hepatosplenomegaly and hepatic steatosis. Will need outpatient follow up. Qualifiers: Ascites presence: without ascites Qualified Code(s): K70.10 - Alcoholic hepatitis without ascites (3) Hypokalemia: Status: Acute Assessment and plan: Replete, recheck this afternoon (4) Hypomagnesemia: Status: Acute Assessment and plan: Replete, recheck in am. (5) Cervical radiculopathy: Status: Chronic Assessment and plan: Continue home therapy D/c steroid taper. (6) DVT prophylaxis: Status: Acute Assessment and plan: SC lovenox (7) Discharge planning issues: Status: Acute Assessment and plan: Full code total critical Care time [address] Hartley Subjective Subjective Interval history since last seen: More alert today and able to follow some commands. Thinks he is on a train. Denies dizziness, chest pain, shortness of breath, nausea. Hungry. Passed nursing swallow screen and tolerated clears. Leg restraints removed.. Exam Narrative Exam Narrative: General: Obese male, asleep, easily arousable, A&Ox1, appears to be in good spirits HEENT: EOMI, dry MM Cardiovascular: RRR, mildly tachycardic, no m/r/g Lungs: CTAB Gastrointestinal: soft, nontender, nondistended Genitourinary: has a amin Extremities: no edema BLE's, 2+ pedal pulses BLEs, restraints on BUEs Objective Last Vital Signs Temp 36.0 C L 12/24/20 04:00 Pulse 95 H 12/24/20 06:00 Resp 20 12/24/20 06:01 BP 134/87 12/24/20 06:00 Pulse Ox 91 L 12/24/20 06:01 Laboratory Results - last 24 hr 12/22/20 12/24/20 12/24/20 06:27 06:10 06:10 WBC RBC Hgb Hct MCV MCH MCHC RDW Plt Count MPV Immature Gran % Neutrophils % Lymphocytes % Monocytes % Eosinophils % Basophils % Nucleated RBC % Absolute Neutrophils Absolute Lymphocytes Absolute Monocytes Absolute Eosinophils Absolute Basophils Sodium 140 Potassium 2.9 L Chloride 105 Carbon Dioxide 26.7 Anion Gap 8.3 BUN 12 Creatinine 0.7 Estimated GFR/1.73 m2 >= 60.00 Glucose 97 Calcium 8.3 L Magnesium 1.9 Hep Bs Antigen Negative Hep Bs Antibody Negative Hep Bs Antibody, Quant <3.1 Hep B Core Total Ab Negative Hepatitis C Antibody Negative 12/24/20 06:10 WBC 6.77 RBC 4.34 L Hgb 14.7 Hct 42.9 MCV 98.8 H MCH 33.9 H MCHC 34.3 RDW 11.8 Plt Count 123 L MPV 9.9 Immature Gran % 0.3 Neutrophils % 48.5 Lymphocytes % 29.5 Monocytes % 15.1 Eosinophils % 5.6 Basophils % 1.0 Nucleated RBC % 0 Absolute Neutrophils 3.28 Absolute Lymphocytes 2.00 Absolute Monocytes 1.02 H Absolute Eosinophils 0.38 Absolute Basophils 0.07 Sodium Potassium Chloride Carbon Dioxide Anion Gap BUN Creatinine Estimated GFR/1.73 m2 Glucose Calcium Magnesium Hep Bs Antigen Hep Bs Antibody Hep Bs Antibody, Quant Hep B Core Total Ab Hepatitis C Antibody
[2020-12-24] MEDS: methylPREDNISolone SUCC 40 MG VIAL 20 MG IVP (09:07)
[2020-12-24] MEDS: Haloperidol 5 MG/ML VIAL IM/IV ×2 (09:08→20:00)
[2020-12-24] MEDS: Bacitracin 1 PACKET TP ×2 (09:09→17:21)
[2020-12-24] MEDS: Bisacodyl 10 MG SUPP PR (09:09)
[2020-12-24] MEDS: THIAMINE 100 MG in Normal Saline 100 ML 202 MG IVPB (09:10)
[2020-12-24] MEDS: Normal Saline Flush 10 ML SYR IVP (09:10)
--- NOTE | 2020-12-24 09:10 | PDOC.CMPRO ---
Care Management Progress Note S/O: Hussein continues to be closely monitored and treated via CIWA and RASS protocols. He continues to require restraints this morning and continues to be disoriented and agitated when alert. CM continues to follow. A: 29 year old male admitted to [facility] 12/21/20 for alcohol withdrawal, alcoholic hepatitis P: Hussein continues to be closely monitored and treated in the ICU. CM continues to follow, anticipate once alert, CM will review current [facility] supports and possibilities for PCP attachment.
[2020-12-24] MEDS: POTASSIUM CHLORIDE 20 MEQ/100 ML BAG 50 MEQ IVPB ×3 (09:11→14:28)
--- NOTE | 2020-12-24 11:43 | W.PULMCC ---
General Date of Service Date of service: 12/24/20 Time of Service: 07:30 Reason for Admission to ICU: Altered mental status Assessment and Plan Assessment and plan (1) Alcohol withdrawal: Status: Acute Qualifiers: Complication of substance-induced condition: with perceptual disturbance Qualified Code(s): F10.232 - Alcohol dependence with withdrawal with perceptual disturbance (2) Alcoholic hepatitis: Status: Acute Qualifiers: Ascites presence: without ascites Qualified Code(s): K70.10 - Alcoholic hepatitis without ascites (3) Macrocytosis: Status: Acute (4) Coagulopathy: Status: Acute (5) Hypokalemia: Status: Acute (6) Hypomagnesemia: Status: Acute (7) Abnormal albumin: Status: Acute (8) Phenobarbital toxicity: Status: Acute Qualifiers: Encounter type: initial encounter Injury intent: accidental or unintentional Qualified Code(s): T42.3X1A - Poisoning by barbiturates, accidental (unintentional), initial encounter (9) Alcohol withdrawal hallucinosis: Status: Acute (10) Agitation: Status: Acute Assessment and plan: This is a 29-year-old gentleman who was admitted to the ICU for agitation and alcohol withdrawal in the setting of attempting to cut down on alcohol intake. He does not have a history of alcohol withdrawal seizures however on admission did admit to hallucinations consistent with the development of alcoholic hallucinations. He was initially treated with significant amounts of benzodiazepines and was subsequently treated with very high doses of phenobarbital (30 mg/kg). Although phenobarbital is not contraindicated in liver disease conservative dosing must be employed as well as obtaining phenobarbital levels in order to avoid toxicity or overdose. In patients with liver dysfunction on maximum dose of phenolbarbital would be 15 to 20 mg/kg. He is certainly treated for any alcohol withdrawal and thus any continued agitation likely reflects an alternative process that should be managed differently. Recommendations Pulmonary: No acute concerns?maintaining airway currently Cardiac: No acute concerns Renal: Again, recommend checking a phosphorus level given EtOH use Hypokalemia - recommend repletement to 4.0 Hypomagnesemia - recommend repletement to 2.0 Hypocalcemia - continue to monitor I&O: Intake & Output 12/21/20 12/22/20 12/23/20 12/24/20 23:59 23:59 23:59 23:59 Intake Total 2478.2 / 2478.2 3696.2 / 3696.2 4146 / 4146 1180 / 1180 Output Total 1175 / 1175 1750 / 1750 2300 / 2300 1175 / 1175 Balance 1303.2 / 1303.2 1946.2 / 1946.2 1846 / 1846 5 / 5 Weight 102 kg 102.2 kg 102.8 kg 101.8 kg Daily Fluid Goal:: Even GI Nutrition: Nutrition - would not recommend any further banana bags - typically no further benefit after 1 bag - recommend changing fluids to LR 75cc and consider discontinuing them once he takes any PO - recommend PO thiamine, folate and MVI when able to swallow - recommend diet when safe Alcoholic Hepatitis - Madri score is 9 on admission, no indications for glucocorticoid therapy - again, would discontinue methyprednisilone (on this for a msk indication) as this will worsen his agitation, can decrease dose daily until off - outpatient hepatology consultation - U/S shows hepatosteatosis and hepatosplenomegaly Albumin Deficiency - PO intake when safe Constipation - recommend AXR to rule out ileus, if no SBO or ileus, recommend enema or PO regimen if able to swallow today Infectious Disease: No acute concerns Hematologic: Macrocytosis - MVI when able Coagulopathy - due to liver failure - PO diet when able Neurologic: Alcohol Withdrawl - s/p supratherapeutic doses of phenobarbital - do not give any further doses of either phenobarbital or benzo's - would recheck phenobarb level today - continue to hold Precedex gtt - recommend melatonin at night once patient is less sedated Agitation/Delirium - again, as above, avoid further benzo's and phenobarb - recommend schedule Haldol 5mg bid - recommend checking an EKG tomorrow morning - can add prn Zyprexa 10mg - delirium prevention - lights on during day and off at night, melatonin at night if patient more awake - recommend discontinuing methylprednisilone - discontinue 4 point restraints Endocrine: No acute concerns Lines: PIV Prophylaxis: Lovenox No clear indication for GI ppx I spent a total of 30 minutes with this patient including bedside assessment, coordination of care with the hospitalist service, rounding with nursing and respiratory therapy, chart review and documentation. Code Status: Resuscitation Status Full Code Subjective Critical and life-threatening events over the past 24 hours: On my assessment the patient is too somnolent to interact or participate in interview. Exam Const General: other (Sedated) Nutritional Appearance: well nourished [facility] Head: normocephalic Ears: external ears normal and no periauricular adenopathy General nose exam: nasal mucous membranes and turbinates normal Face and sinus: sinuses nontender Mouth: oropharynx normal and mucous membranes dry Teeth and gingiva: caries Eyes General: appearance normal, both eyes and all related structures Pupils: PERRL Neck Neck: normal visual inspection and no lymphadenopathy Chest Chest: normal inspection of the chest Resp Effort & Inspection: normal respiratory effort Auscultation: clear to auscultation bilaterally, no rales, no rhonchi and no wheezes Cardio Rate: regular rate Rhythm: regular rhythm Heart Sounds: S1 normal, S2 normal and no murmurs Pulses: radial pulses present bilaterally GI Inspection: normal to inspection Palpation: soft Skin General skin exam: no rashes or lesions noted Neuro General: patient alert, patient awake and patient oriented x3 Extrem General: no clubbing, cyanosis or edema Psych Mental Status: mental status grossly abnormal Affect: normal affect Attitude: cooperative Most Recent VS/Results Last Vital Signs Temp 36.0 C L 12/24/20 09:00 Pulse 95 H 12/24/20 06:00 Resp 20 12/24/20 06:01 BP 134/87 12/24/20 06:00 Pulse Ox 91 L 12/24/20 06:01 Laboratory Results - last 24 hr 12/22/20 12/24/20 12/24/20 06:27 06:10 06:10 WBC RBC Hgb Hct MCV MCH MCHC RDW Plt Count MPV Immature Gran % Neutrophils % Lymphocytes % Monocytes % Eosinophils % Basophils % Nucleated RBC % Absolute Neutrophils Absolute Lymphocytes Absolute Monocytes Absolute Eosinophils Absolute Basophils Sodium 140 Potassium 2.9 L Chloride 105 Carbon Dioxide 26.7 Anion Gap 8.3 BUN 12 Creatinine 0.7 Estimated GFR/1.73 m2 >= 60.00 Glucose 97 Calcium 8.3 L Magnesium 1.9 Phenobarbital Hep Bs Antigen Negative Hep Bs Antibody Negative Hep Bs Antibody, Quant <3.1 Hep B Core Total Ab Negative Hepatitis C Antibody Negative 12/24/20 12/24/20 06:10 06:10 WBC 6.77 RBC 4.34 L Hgb 14.7 Hct 42.9 MCV 98.8 H MCH 33.9 H MCHC 34.3 RDW 11.8 Plt Count 123 L MPV 9.9 Immature Gran % 0.3 Neutrophils % 48.5 Lymphocytes % 29.5 Monocytes % 15.1 Eosinophils % 5.6 Basophils % 1.0 Nucleated RBC % 0 Absolute Neutrophils 3.28 Absolute Lymphocytes 2.00 Absolute Monocytes 1.02 H Absolute Eosinophils 0.38 Absolute Basophils 0.07 Sodium Potassium Chloride Carbon Dioxide Anion Gap BUN Creatinine Estimated GFR/1.73 m2 Glucose Calcium Magnesium Phenobarbital 47.0 H* Hep Bs Antigen Hep Bs Antibody Hep Bs Antibody, Quant Hep B Core Total Ab Hepatitis C Antibody Review of Systems Unobtainable due to mental status
[2020-12-24 11:49] LABS: Hepatitis A Antibody IgM Negative (Negative); Hepatitis B Core Antibody Negative (Negative); Hepatitis B surface Ag Negative (Negative); Hepatitis C Ab w Rflx HCV PCR Negative (Negative)
[2020-12-24] MEDS: Enoxaparin 40 MG/0.4 ML SYR SC (12:07)
[2020-12-24] MEDS: OLANZapine 10 MG VIAL IM (14:20)
[2020-12-24] MEDS: Ketorolac 30 MG/ML VIAL IVP (14:24)
[2020-12-24 16:37] LABS: Potassium 4.2 mmol/L (3.5-5.1)
[2020-12-24] MEDS: Pantoprazole 40 MG VIAL IVP (17:21)
[2020-12-25] VITALS (43 sets, daily range): BP systolic 106–142; BP diastolic 65–102; PULSE 78–129; RESP 13–33; TEMP 36–36.8; O2SAT 87–97
[2020-12-25 07:26] LABS: BUN 11 mg/dL (7-18); CO2 26.8 mmol/L (21.0-32.0); CREATININE 0.7 mg/dL (0.70-1.30); Calcium 9.1 mg/dL (8.5-10.1); Chloride 105 mmol/L (98-107); Glucose 99 mg/dL (74-106); Magnesium 1.7 mg/dL (1.8-2.4); Potassium 3.2 mmol/L (3.5-5.1)
[2020-12-25 07:32] LABS: Anion Gap 9.2 mmol/L (3-11); Sodium 141 mmol/L (136-145)
--- NOTE | 2020-12-25 08:19 | W.PM.PROGNOT ---
Date of Service Date of service: 12/25/20 Time of Service: 13:00 Assessment and Plan Assessment and plan (1) Alcohol withdrawal: Status: Acute Assessment and plan: Maxed out on phenobarbital and, therefore, should not seize. Doing much better. Transfer out of ICU later today if not requiring any prn antipsychotics. Qualifiers: Complication of substance-induced condition: with perceptual disturbance Qualified Code(s): F10.232 - Alcohol dependence with withdrawal with perceptual disturbance (2) Alcoholic hepatitis: Status: Acute Assessment and plan: Discriminant function score indicates good prognosis. No role for steroids. Hepatitis panel negative. US RUQ with hepatosplenomegaly and hepatic steatosis. Will need outpatient follow up. Qualifiers: Ascites presence: without ascites Qualified Code(s): K70.10 - Alcoholic hepatitis without ascites (3) Hypokalemia: Status: Acute Assessment and plan: Replete, recheck this afternoon (4) Hypomagnesemia: Status: Acute Assessment and plan: Replete, recheck in am. (5) Cervical radiculopathy: Status: Chronic Assessment and plan: Continue home therapy Add gabapentin. (6) DVT prophylaxis: Status: Acute Assessment and plan: SC lovenox (7) Discharge planning issues: Status: Acute Assessment and plan: Full code Likely transfer out of ICU later today. Subjective Subjective Interval history since last seen: Doing significantly better today. Awake, A&Ox2-3 (thinks it's the end of November, but the date was wrong on his calendar in the room). Compliant. Off of restraints. Complains of pain in his BUE's and somewhat in his neck. No dizziness, headache, chest pain, shortness of breath, nausea. States he had an MRI at [facility]. CIWA 0. Got scheduled haldol last night. Exam Narrative Exam Narrative: General: Obese male, awake, conversant, A&Ox3, doing much better HEENT: EOMI, MMM Cardiovascular: RRR, mildly tachycardic, no m/r/g Lungs: CTAB Gastrointestinal: soft, nontender, nondistended Genitourinary: has a amin Extremities: no edema BLE's, 2+ pedal pulses BLEs Objective Last Vital Signs Temp 36.2 C L 12/25/20 00:01 Pulse 89 12/25/20 06:00 Resp 16 12/25/20 06:01 BP 134/93 H 12/25/20 06:00 Pulse Ox 91 L 12/25/20 06:01 Laboratory Results - last 24 hr 12/23/20 12/24/20 12/24/20 06:25 06:10 15:15 Sodium Potassium 4.2 D Chloride Carbon Dioxide Anion Gap BUN Creatinine Estimated GFR/1.73 m2 Glucose Calcium Magnesium Phenobarbital 47.0 H* Hepatitis A IgM Ab Negative Hep Bs Antigen Negative Hep B Core Total Ab Negative Hepatitis C Antibody Negative 12/25/20 12/25/20 06:25 06:25 Sodium 141 Potassium 3.2 L D Chloride 105 Carbon Dioxide 26.8 Anion Gap 9.2 BUN 11 Creatinine 0.7 Estimated GFR/1.73 m2 >= 60.00 Glucose 99 Calcium 9.1 Magnesium 1.7 L Phenobarbital Hepatitis A IgM Ab Hep Bs Antigen Hep B Core Total Ab Hepatitis C Antibody
[2020-12-25] MEDS: Bacitracin 1 PACKET TP ×3 (08:30→19:27)
[2020-12-25] MEDS: THIAMINE 100 MG in Normal Saline 100 ML 200 MG IVPB (08:31)
[2020-12-25] MEDS: MAGNESIUM SULFATE 2 GM/50 ML BAG IVPB (08:32)
[2020-12-25] MEDS: POTASSIUM CHLORIDE 20 MEQ/100 ML BAG 50 MEQ IVPB ×2 (08:32→11:50)
[2020-12-25] MEDS: Enoxaparin 40 MG/0.4 ML SYR SC (11:51)
--- NOTE | 2020-12-25 13:01 | CMPROGNOTE_ITS ---
Care Management Progress Note S/O: Hussein continues to be closely monitored and treated, per MD medications are being tapered; he remains confused at this time. Once he clears CM will meet for full assessment and request catalyst recovery operator to meet with Hussein as well. Depending on residency duration, possible [facility] referral for [facility] consideration as well. CM continues to follow. A: 29 year old male admitted to [facility] 12/21/20 for alcohol withdrawal, alcoholic hepatitis P: Hussein continues to be closely monitored and treated in the ICU. CM continues to follow, anticipate once alert, CM will review current [facility] supports and possibilities for PCP attachment, insurance and catalyst recovery operator.
--- NOTE | 2020-12-25 13:49 | NUR.NOTE ---
CM is requesting MRI records from [facility] at the request of Dr. Loyola. Nursing Note:
[2020-12-25] MEDS: Ibuprofen 600 MG TAB PO ×2 (16:22→19:27)
[2020-12-25] MEDS: Gabapentin 100 MG CAP PO ×2 (16:22→19:27)
[2020-12-25] MEDS: Normal Saline Flush 10 ML SYR IVP ×2 (18:16→19:28)
[2020-12-25] MEDS: Pantoprazole 40 MG VIAL IVP (18:16)
--- NOTE | 2020-12-25 18:26 | STREC_ITS ---
Date of service: 12/25/20 Time of Service: 18:26 Speech Therapy Recommendations Report ST Recommendations: FISCAL SPECIALIST Non-Treatment Note FISCAL SPECIALIST received call from ICU staff 12/25 regarding consult order, chart reviewed (appears order was placed 12/23, however no initial consult received; KASOBIA ticket entered to have IS dept assess potential issue). FISCAL SPECIALIST spoke with staffing rn x2 in early afternoon and evening, patient does not appear to have any difficulties with po intake at this time; FISCAL SPECIALIST evaluation is not warranted. Please re-consult PRN. Mariposa Gaviria MA [facility]-FISCAL SPECIALIST Speech-Language Pathologist [place]#[phone] Coding
--- NOTE | 2020-12-25 18:26 | PDOC.STREC ---
Date of service: 12/25/20 Time of Service: 18:26 Speech Therapy Recommend[address] Report ST Recommendations: BUSINESS SERVICES SPECIALIST SALES Non-Treatment Note BUSINESS SERVICES SPECIALIST SALES received call from ICU staff 12/25 regarding consult order, chart reviewed (appears order was placed 12/23, however no initial consult received; KASOBIA ticket entered to have IS dept assess potential issue). BUSINESS SERVICES SPECIALIST SALES spoke with event staff member x2 in early afternoon and evening, patient does not appear to have any difficulties with po intake at this time; BUSINESS SERVICES SPECIALIST SALES evaluation is not warranted. Please re-consult PRN. Mariposa Gaviria MA [facility]-BUSINESS SERVICES SPECIALIST SALES Speech-Language Pathologist [place]#[phone] Coding
[2020-12-26] VITALS (20 sets, daily range): BP systolic 118–136; BP diastolic 77–98; PULSE 70–118; RESP 12–20; TEMP 35.5–36.4; O2SAT 89–97
[2020-12-26 07:18] LABS: Magnesium 1.7 mg/dL (1.8-2.4)
[2020-12-26 07:19] LABS: Anion Gap 11.3 mmol/L (3-11); BUN 15 mg/dL (7-18); CO2 24.7 mmol/L (21.0-32.0); CREATININE 0.8 mg/dL (0.70-1.30); Calcium 9.4 mg/dL (8.5-10.1); Chloride 102 mmol/L (98-107); Glucose 88 mg/dL (74-106); Potassium 3.4 mmol/L (3.5-5.1); Sodium 138 mmol/L (136-145)
[2020-12-26] MEDS: Omeprazole 20 MG CAPCR PO (07:43)
[2020-12-26] MEDS: Gabapentin 100 MG CAP PO ×2 (07:44→13:21)
[2020-12-26] MEDS: Ibuprofen 600 MG TAB PO ×2 (07:45→10:54)
[2020-12-26] MEDS: Bacitracin 1 PACKET TP ×2 (07:45→13:21)
[2020-12-26] MEDS: Normal Saline Flush 10 ML SYR IVP ×2 (07:45→10:22)
--- NOTE | 2020-12-26 08:40 | W.PM.PROGNOT ---
Subjective Subjective Interval history since last seen: Not scoring on CIWA. A&Ox3 Today [birth year] birthday. HR in the 90s. Wants to go home. Penile bleeding resolved (did accidentally pull his catheter with traumatic hematuria after). Objective Last Vital Signs Temp 35.8 C L 12/26/20 00:12 Pulse 93 H 12/26/20 06:08 Resp 17 12/26/20 06:08 BP 123/77 12/26/20 06:08 Pulse Ox 93 12/26/20 06:08 Laboratory Results - last 24 hr 12/26/20 12/26/20 06:23 06:23 Sodium 138 Potassium 3.4 L Chloride 102 Carbon Dioxide 24.7 Anion Gap 11.3 H BUN 15 Creatinine 0.8 Estimated GFR/1.73 m2 >= 60.00 Glucose 88 Calcium 9.4 Magnesium 1.7 L
[2020-12-26] MEDS: MAGNESIUM SULFATE 2 GM/50 ML BAG IVPB (10:14)
[2020-12-26] MEDS: Multivitamin TAB 1 TAB PO (10:14)
[2020-12-26] MEDS: Thiamine 100 MG TAB PO (10:14)
[2020-12-26] MEDS: Potassium Chloride 20 MEQ TABCR 40 MEQ PO (10:55)
--- NOTE | 2020-12-26 11:29 | W.PM.DS.N ---
Date of service: 12/26/20 Time of Service: 11:30 DS: Diagnosis Discharge Diagnosis (1) Alcohol withdrawal: Status: Resolved (2) Alcoholic hepatitis: Status: Acute (3) Hypokalemia: Status: Acute (4) Hypomagnesemia: Status: Acute (5) Phenobarbital toxicity: Status: Resolved (6) Cervical radiculopathy: Status: Chronic (7) Alcohol abuse: Status: Chronic (8) Macrocytosis: Status: Chronic (9) Hepatic steatosis: Status: Acute (10) COVID-19 ruled out by laboratory testing: Status: Ruled-out Discharge Plan Disposition Patient Disposition: HOME Condition: Stable Discharge Details Reason For Visit: Alcohol withdrawal, alcoholic hepititis Admit Date/Time: 12/21/20 07:44 Admit Provider: Yasmine Loyola Attending Provider: Yasmine Loyola Primary Care Provider: None,None Hospital Course Hospital Course: Mr Jordan is a 30 year old male with MPHx of alcohol abuse as well as h/o cervical radiculopathy (primarily to LUE), who [facility] with severe alcohol withdrawal. He also had evidence of mild alcoholic hepatitis, which due to his discriminant function score, did not qualify for corticosteroid therapy. When benzodiazepines were not helpful in controlling his sx of alcohol withdrawal, he was switched to phenobarbital therapy. He ended up being supratherapeutic on phonebarbital and continued to have behavioral symptoms of delirium, which were treated with antipsychotics. The patient was significantly better by 12/25/20 and was transferred out of the ICU. He is no longer showing signs or symptoms of alcohol withdrawal or encephalopathy and he is stable for discharge home today. He is interested in meeting with a catalyst recovery operator and continuing on a sober path. Resources are being given to him by care managers. He is being plugged in with a new PCP as well (had just moved from the [place] area). He is being discharged home with a prescription for low dose gabapentin for his radicular symptoms. US abdomen revealed hepatosplenomegaly and hepatic steatosis. This will need outpatient follow up once the patient has a PCP. He will need BMP and magnesium checked in 1 week as these were still somewhat low at the time of discharge. He is getting sent home with low dose repletion of both. Care for patient as well as completion of his discharge summary on day of discharge took 45 minutes. Home Meds and New Rx's Prescriptions: New gabapentin 100 mg Capsule 100 mg PO TID Qty: 90 RF: 0 ibuprofen 600 mg Tablet 600 mg PO QID PRN PRN (Reason: neck or shoulder pain) Qty: 30 RF: 0 multivitamin [Multiple Vitamins] Tablet 1 tab PO DAILY Qty: 30 RF: 0 omeprazole 20 mg Capsule,Delayed Release(Dr/Ec) 20 mg PO DAILY@0730 Qty: 30 RF: 0 thiamine mononitrate (vit B1) [Vitamin B-1 (mononitrate)] 100 mg Tablet 100 mg PO DAILY Qty: 30 RF: 0 bacitracin 500 unit/gram ointment 1 applic topical DAILY Qty: 28 RF: 0 magnesium oxide 400 mg (241.3 mg magnesium) tablet 400 mg PO DAILY Qty: 7 RF: 0 potassium chloride 20 mEq tablet extended release 20 meq PO DAILY Qty: 7 RF: 0 Discontinued ibuprofen [Motrin] 800 mg Tablet 800 mg PO BID PRN PRNRF: 0 prednisone 20 mg Tablet 20 mg PO BID RF: 0 cyclobenzaprine [Flexeril] 5 mg Tablet RF: 0 Discharge Instructions Instructions: Gabapentin (By mouth), Hypokalemia (DC), Alcohol Withdrawal (DC), Cervical Radiculopathy (GEN), Hypomagnesemia (DC) Additional Instructions: Return to the hospital with any fever, bleeding, chest pain, shortness of breath. Bloodwork in 1 week. Follow up with your new PCP and catalyst recovery operator. Referrals: Garcia Martinez NP [NURSE PRACTITIONER] - Activity:: Activity as Tolerated Equipment/Supplies:: No Equipment Needed Diet:: As Tolerated Discharge Orders Discharge Orders: Discharge Order (Routine); Ordered 12/26/20 Ordered By: Yasmine Loyola Other Ambulatory Orders: Basic Metabolic Panel (Routine) Timeframe: 20210102 Location: Determined by Patient Ordered By: Yasmine Loyola Magnesium (Routine) Timeframe: 20210102 Location: Determined by Patient Ordered By: Yasmine Loyola DS: Summary Time Spent with Patient providing and/or coordinating discharge services: Greater than 30 minutes Status at Discharge Functional status at discharge: independent ambulation Overall status at discharge: patient is back to baseline Mental Status: mental status grossly normal Speech and Movement: speech and movement normal Mood: congruent mood Affect: normal affect Exam Narrative Exam Narrative: General: Obese male, A&Ox3, completely back to baseline HEENT: EOMI, MMM Cardiovascular: RRR, mildly tachycardic, no m/r/g Lungs: CTAB Gastrointestinal: soft, nontender, nondistended Extremities: no edema BLE's, 2+ pedal pulses BLEs Psych Mental Status: mental status grossly normal Speech and Movement: speech and movement normal Mood: congruent mood Affect: normal affect DS: Data Vitals/I&O Vitals and I&O: Vital Signs Temperature 36.4 C L 12/26/20 07:30 Temperature Source Temporal Artery Scan 12/26/20 07:30 Pulse 98 H 12/26/20 07:29 Pulse 70 12/26/20 10:07 Respiratory Rate 17 12/26/20 10:07 Respiratory Effort Non-Labored 12/26/20 07:30 Respiratory Depth Normal 12/26/20 07:30 Respiratory Pattern Normal 12/26/20 07:30 Blood Pressure 136/98 H 12/26/20 07:29 Blood Pressure Mean 103 12/26/20 07:29 Blood Pressure Position Supine 12/26/20 00:12 Pulse Oximetry 95 12/26/20 07:29 Respiratory End-tidal CO2 29 12/25/20 12:01 Oxygen Delivery Method Room Air 12/26/20 07:30 Oxygen Flow Rate 0 12/26/20 07:30 Pain Level 0 12/26/20 09:45 Intake & Output 12/25/20 12/25/20 12/26/20 11:59 23:59 11:59 Intake Total 1065 / 2181 1116 / 2181 210 / 210 Output Total 350 / 2100 1750 / 2100 400 / 400 Balance 715 / 81 -634 / 81 -190 / -190 Intake: IV 1065 / 1681 616 / 1681 10 10 Oral 500 / 500 200 / 200 Output: Urine 350 / 2100 1750 / 2100 400 / 400 Other: Urine Color Dark Blanka Yellow Dark Blanka Brown Urine Appearance Clear Hematuria Clear Urine Odor None Comment pt had pulled on amin prior to removal and caused hematuria Patient voided this AM. Reports no pain or issues with voiding. Patient used a brief overnight as he was initially incontinent after pulling his own amin out. Voiding Methods Urinal Data Completed and Pending Completed studies during hospitalization [Text1]: US abdomen: 1. Hepatosplenomegaly. 2. Hepatic steatosis. Labs on day of discharge: Labs from last 24 hours 12/26/20 12/26/20 06:23 06:23 Sodium 138 Potassium 3.4 L Chloride 102 Carbon Dioxide 24.7 Anion Gap 11.3 H BUN 15 Creatinine 0.8 Estimated GFR/1.73 m2 >= 60.00 Glucose 88 Calcium 9.4 Magnesium 1.7 L [facility] Medical History (Updated 12/26/20 @ 11:50 by Yasmine Loyola MD) Alcohol abuse Cervical radiculopathy Surgical History No significant past surgical history Family History (Updated 12/21/20 @ 10:26 by Yasmine Loyola MD) Other Family history unobtainable due to patient's condition Social History (Updated 12/21/20 @ 10:27 by Yasmine Loyola MD) Smoking/Tobacco Use Status: Current-Occasional Tobacco Type: smokeless tobacco Smoking risk assessment performed?: Yes Alcohol Intake: current Alcohol Intake frequency: 3 or more drinks per day Alcohol type: beer and hard liquor Details: The patient cannot tell me when his last drink was. Drug use: Never Substance use type: does not use Do you feel safe at home: Yes Do you feel safe in your relationship?: Yes
--- NOTE | 2020-12-26 13:06 | CMDISCH_ITS ---
LACE Index Scoring Tool - Questions: Length of Stay (in days): 4 - 6 Acuity (Admit via E.D.?): Yes E.D. Visits: 1 - Answers: Total Score: 8 Risk of Readmission: Low Risk Care Management Discharge Reason for Hospitalization: Alcoholic withdrawal, alcoholic hepatitis Discharge Plan: Hussein will return home when ready per MD. He met with assistant football coach, Joanne and will continue to be followed in the community. He preferred to attach to [email or web address] for PCP-new patient paperwork provided for follow up. CM discussed connection with [employer] for insurance, Hussein will begin his new job next week and determine insurance needs, possible [facility] financial assistance if appropriate. He will transport via private vehicle with his roomate. CM updated HIPPA directive and patient contacts to include roomates and his mother and father. Patient/Family Education Needs: Review discharge instructions, community based supports, [facility] resources, insurance and PCP attachment.
[2020-12-26] MEDS: Amoxicillin 875/Clav. 125 TAB PO (14:09)
--- NOTE | 2020-12-26 16:35 | NUR.NOTE ---
Nursing Note: at 1409 patient was given Augmentin and was monitored for reaction and the patient has no reaction and Dr. Hubbard was informed
== END 2020-12-26 15:34 | disposition home or self-care (01) | DRG 897 ==
LOC: ER 08:06 → ICU 09:29 → MS 12-26 09:47
PROVIDERS: Admitting Provider Internal Medicine; Emergency Provider Emergency Medicine; Visit Provider Internal Medicine
DX: F10.132 Alcohol abuse with withdrawal with perceptual disturbance (principal); D68.4 Acquired coagulation factor deficiency; T80.1XXA Vascular complications following infusion, transfusion and therapeutic injection, initial encounter; K70.10 Alcoholic hepatitis without ascites; E87.6 Hypokalemia; E83.42 Hypomagnesemia; M54.12 Radiculopathy, cervical region; Z78.1 Physical restraint status; F17.290 Nicotine dependence, other tobacco product, uncomplicated; E66.9 Obesity, unspecified; Z68.33 Body mass index [BMI] 33.0-33.9, adult; E83.51 Hypocalcemia; T42.3X1A Poisoning by barbiturates, accidental (unintentional), initial encounter; R40.0 Somnolence; Y92.230 Patient room in hospital as the place of occurrence of the external cause; E88.09 Other disorders of plasma-protein metabolism, not elsewhere classified; K59.00 Constipation, unspecified; I80.8 Phlebitis and thrombophlebitis of other sites; Z20.822 Contact with and (suspected) exposure to COVID-19
CPT/HCPCS: 36415; 80048; 80076; 80307; 83690; 86704; 86706; 86709; 86803; 87040; 87340; 87635; 93005; 96365; 96366; 96375; 99291; J1650; 76700; 80184; 80320; 81003; 82607; 82746; 83735; 84132; 85025; 85610; 93010; 99217; 99232; J1200; J1630; J1885; J2060; J2250; J2560; J3360; J3475; J3480; J7512

== ENCOUNTER 2021-02-06 17:22 | Outpatient (REF) | payer OTHER, SELFPAY ==
[2021-02-06 21:41] LABS: ALT 63 U/L (16-63); AST 100 U/L (15-37); Albumin 3.8 g/dL (3.4-5.0); Alkaline Phosphatase 142 U/L (46-116); Anion Gap 10.5 mmol/L (3-11); BUN 4 mg/dL (7-18); Bilirubin, Total 1.7 mg/dL (0.2-1.0); CO2 28.5 mmol/L (21.0-32.0); CREATININE 0.8 mg/dL (0.70-1.30); Calcium 8.9 mg/dL (8.5-10.1); Chloride 104 mmol/L (98-107); Glucose 106 mg/dL (74-106); Magnesium 1.7 mg/dL (1.8-2.4); Potassium 3.4 mmol/L (3.5-5.1); Sodium 143 mmol/L (136-145); Total Protein 7.8 g/dL (6.4-8.2)
[2021-02-06 21:46] LABS: Abs Immature Grans 0.02 10^3/uL (0.0-0.06); Absolute Eosinophil Count 0.16 10^3/uL (0.0-0.7); Absolute Monocyte Count 0.85 10^3/uL (0.1-0.8); Absolute Neutrophil Count 4.33 10^3/uL (1.2-6.7); Basophils % 1.2; Eosinophils % 1.9; HCT 50.1 % (40.0-50.0); Immature Grans % 0.2; Lymphocytes % 33.9; MCH 32.9 pg (27.0-33.0); MCHC 33.9 % (32.0-36.0); MCV 97.1 fL (80-95); MPV 9.4 fL (8.0-11.0); Monocytes % 10.3; Neutrophils % 52.5; Nucleated RBC 0 %; Platelet Count 166 10^3/uL (130-400); RBC 5.16 10^6/uL (4.36-5.78); RDW 12.5 % (11.8-14.1); RDW-SD 45.1 fL; WBC 8.26 10^3/uL (4.4-10.8)
== END 2021-02-06 17:23 | disposition home or self-care (01) ==
LOC: NCHCN 17:22
PROVIDERS: Visit Provider Family Medicine
DX: E83.42 Hypomagnesemia (principal); K70.10 Alcoholic hepatitis without ascites
CPT/HCPCS: 80053; 83735; 85025

== ENCOUNTER 2021-04-13 01:09 | Outpatient (CLI) | payer OTHER, MEDICAID, SELFPAY ==
--- NOTE | 2021-04-13 16:00 | DI.RAD_ITS ---
Exam(s) XR CERVICAL SPINE COMP 4-5V EXAM: XR CERVICAL SPINE COMP 4-5V CLINICAL HISTORY: LT SHOULDER JOINT PAIN M25.512. TECHNIQUE: 2D digital imaging was performed. COMPARISON: No exams were available for comparison FINDINGS: The odontoid is intact. The lateral masses are well aligned. There is straightening of the normal c ervical lordosis. This may be due to muscle spasm or patient positioning. The vertebral bodies, dis c spaces and posterior elements are well maintained. No acute fracture or subluxation is present. N o significant neural foraminal stenosis is present. The cervical thoracic junction is well maintaine d. The prevertebral soft tissues are unremarkable. Lung apices are clear. IMPRESSION: Unremarkable radiographs of the cervical spine. DATA REPOSITORY: RADIATION DOSE DELIVERED:
--- NOTE | 2021-04-13 16:00 | DI.RAD_ITS ---
Exam(s) XR SHOULDER LT COMPLETE 2+V EXAM: XR SHOULDER LT COMPLETE 2+V CLINICAL HISTORY: LT SHOULDER JOINT PAIN M25.512. TECHNIQUE: 2D digital imaging was performed of the left shoulder. Five images were obtained. AP, G rashey, Y-view and axillary views were obtained. COMPARISON: No exams were available for comparison FINDINGS: BONES: No acute fracture is present. No bony destructive lesion is seen. JOINTS: No dislocation present. SOFT TISSUE: Normal. IMPRESSION: Unremarkable radiographs of the left shoulder. DATA REPOSITORY: RADIATION DOSE DELIVERED:
== END 2021-04-13 01:29 ==
PROVIDERS: Visit Provider Family Medicine
DX: M25.512 Pain in left shoulder (principal)
CPT/HCPCS: 72050; 73030

== ENCOUNTER 2021-12-12 18:01 | Inpatient (IN) | payer MEDICAID, SELFPAY ==
[2021-12-12] VITALS (10 sets, daily range): BP systolic 128–144; BP diastolic 77–92; PULSE 92–110; RESP 14–22; TEMP 36.6–37.2; O2SAT 95–98
--- NOTE | 2021-12-12 18:28 | ED.GENADUL_ITS ---
Discharge Plan Disposition Patient Disposition: [facility] INPATIENT Condition: Stable Discharge Details Clinical Impression: Alcohol withdrawal Admit Date/Time: 12/12/21 20:59 Admit Provider: Trung Rosado Attending Provider: Trung Rosado Primary Care Provider: Fahad Arellano ED Provider: Chelle Sanders Medical Decision Making 30-year-old male presents to the ER with chief complaint of alcohol withdrawal symptoms. Patient reports he last had alcohol 6 days ago. He reports he is a daily drinker approximately 18 beers and hard liquor. He was seen Hospital prior to arrival discharged from the department. He is requesting admission for detox. He does have some upper extremity tremors having visual and auditory hallucinations, feeling anxious, restless. He does appear jaundiced, scleral icterus. CBC shows leukocytosis, PT 14.4 INR 1.5, potassium 3.4. A gap 11.2 magnesium low 1.3 AST she, lipase 130 and normal limits urinalysis is within normal limits positive for benzo. Initial CIWA score is approximately 15. Patient given p.o. lorazepam 2057: Spoke with Dr. Rosado regarding patient case and details, accepted for admission for alcohol withdrawal. He recommends ammonia level, head CT, salycilate and Tylenol level. Patient transported to floor in hemodynamically stable condition. Medical Records Medical records reviewed: Yes I reviewed the patient's medical records. Lab Data Lab results reviewed: Yes I reviewed the patient's lab results. Labs: Laboratory Tests Range/Units 12/12/21 12/12/21 12/12/21 18:40 18:40 19:01 WBC (4.4-10.8) 10^3/uL RBC (4.36-5.78) 10^6/uL Hgb (13.5-17.5) g/dL Hct (40.0-50.0) % MCV (80-95) fL MCH (27.0-33.0) pg MCHC (32.0-36.0) % RDW (11.8-14.1) % Plt Count (130-400) 10^3/uL MPV (8.0-11.0) fL Immature Gran % Neutrophils % Lymphocytes % Monocytes % Eosinophils % Basophils % Nucleated RBC % (0.0-0.3) % Absolute Neutrophils (1.2-6.7) 10^3/uL Absolute Lymphocytes (1.2-3.4) 10^3/uL Absolute Monocytes (0.1-0.8) 10^3/uL Absolute Eosinophils (0.0-0.7) 10^3/uL Absolute Basophils (0.0-0.2) 10^3/uL RBC Morphology PT (9.3-11.0) sec INR (0.9-1.1) APTT (21.0-27.5) sec Sodium (136-145) mmol/L 140 Potassium (3.5-5.1) mmol/L 3.1 L Chloride (98-107) mmol/L 100 Carbon Dioxide (21.0-32.0) mmol/L 28.8 Anion Gap (3-11) mmol/L 11.2 H BUN (7-18) mg/dL 9 Creatinine (0.70-1.30) mg/dL 0.9 Estimated GFR/1.73 m2 (mL/min/1.73m2) >= 60.00 Glucose (74-106) mg/dL 103 Calcium (8.5-10.1) mg/dL 9.7 Magnesium (1.8-2.4) mg/dL 1.3 L Total Bilirubin (0.2-1.0) mg/dL 4.0 H AST (15-37) U/L 60 H ALT (16-63) U/L 43 Alkaline Phosphatase (46-116) U/L 118 H Total Protein (6.4-8.2) g/dL 8.0 Albumin (3.4-5.0) g/dL 3.5 Lipase (73-393) U/L 130 Urine Color (Yellow) Yellow Urine Clarity (Clear) Clear Urine pH (5-8) 7.0 Ur Specific Sharon (1.005-1.025) 1.020 Urine Protein (Negative) mg/dL Negative Urine Ketones (Negative) mg/dL Negative Urine Blood (Negative) Negative Urine Nitrite (Negative) Negative Urine Bilirubin (Negative) Negative Urine Urobilinogen (Up TO 0.2) EU/dL >=8.0 Ur Leukocyte Esterase (Negative) Negative Urine Glucose (Negative) mg/dL 100 Urine Opiates Screen (Negative) Negative Urine Methadone Screen (Negative) Negative Ur Barbiturates Screen (Negative) Negative Ur Tricyclics Screen (Negative) Negative Ur Amphetamines Screen (Negative) Negative U Benzodiazepines Scrn (Negative) Positive A Urine Cocaine Screen (Negative) Negative Ur THC Screen (Negative) Negative Range/Units 12/12/21 12/12/21 19:01 19:01 WBC (4.4-10.8) 10^3/uL 7.62 RBC (4.36-5.78) 10^6/uL 4.45 Hgb (13.5-17.5) g/dL 14.9 Hct (40.0-50.0) % 43.2 MCV (80-95) fL 97 H MCH (27.0-33.0) pg 33.5 H MCHC (32.0-36.0) % 34.5 RDW (11.8-14.1) % 12.4 Plt Count (130-400) 10^3/uL 102 L MPV (8.0-11.0) fL 10.6 Immature Gran % 0.1 Neutrophils % 49.9 Lymphocytes % 31.0 Monocytes % 16.0 Eosinophils % 2.0 Basophils % 1.0 Nucleated RBC % (0.0-0.3) % 0.0 Absolute Neutrophils (1.2-6.7) 10^3/uL 3.80 Absolute Lymphocytes (1.2-3.4) 10^3/uL 2.36 Absolute Monocytes (0.1-0.8) 10^3/uL 1.22 H Absolute Eosinophils (0.0-0.7) 10^3/uL 0.15 Absolute Basophils (0.0-0.2) 10^3/uL 0.08 RBC Morphology Normal PT (9.3-11.0) sec 14.4 H INR (0.9-1.1) 1.5 H APTT (21.0-27.5) sec 26.8 Sodium (136-145) mmol/L Potassium (3.5-5.1) mmol/L Chloride (98-107) mmol/L Carbon Dioxide (21.0-32.0) mmol/L Anion Gap (3-11) mmol/L BUN (7-18) mg/dL Creatinine (0.70-1.30) mg/dL Estimated GFR/1.73 m2 (mL/min/1.73m2) Glucose (74-106) mg/dL Calcium (8.5-10.1) mg/dL Magnesium (1.8-2.4) mg/dL Total Bilirubin (0.2-1.0) mg/dL AST (15-37) U/L ALT (16-63) U/L Alkaline Phosphatase (46-116) U/L Total Protein (6.4-8.2) g/dL Albumin (3.4-5.0) g/dL Lipase (73-393) U/L Urine Color (Yellow) Urine Clarity (Clear) Urine pH (5-8) Ur Specific Sharon (1.005-1.025) Urine Protein (Negative) mg/dL Urine Ketones (Negative) mg/dL Urine Blood (Negative) Urine Nitrite (Negative) Urine Bilirubin (Negative) Urine Urobilinogen (Up TO 0.2) EU/dL Ur Leukocyte Esterase (Negative) Urine Glucose (Negative) mg/dL Urine Opiates Screen (Negative) Urine Methadone Screen (Negative) Ur Barbiturates Screen (Negative) Ur Tricyclics Screen (Negative) Ur Amphetamines Screen (Negative) U Benzodiazepines Scrn (Negative) Urine Cocaine Screen (Negative) Ur THC Screen (Negative) HPI General Mode of arrival: ambulatory . Date/Time Provider Initiated Documentation: 12/12/21 18:17 . Limitations to Documentation: no limitations . Information obtained by: patient, RN notes reviewed and old records reviewed . HPI Narrative: 30-year-old male presents to the ER with chief complaint of alcohol withdrawal symptoms. Patient reports he last had alcohol 6 days ago. He reports he is a daily drinker approximately 18 beers and hard liquor. He was seen Hospital prior to arrival discharged from the department. He is requesting admission for detox. He does have some upper extremity tremors having visual and auditory hallucinations, feeling anxious, restless. He does appear jaundiced, scleral icterus. He denies any vomiting or diarrhea. Does have some mild generalized abdominal pain. Past medical history includes alcoholic hepatitis, hypokalemia, hypomagnesemia Related Data Home Medications Medication Instructions Recorded Confirmed bacitracin 500 unit/gram topical 1 applic topical DAILY #28 grams 12/26/20 07/01/21 ointment doxycycline monohydrate 100 mg 100 tab PO DAILY acne 12/12/21 12/12/21 tablet naltrexone 50 mg tablet 50 tab PO DAILY 12/12/21 12/12/21 Previous Rx's Medication Instructions Recorded bacitracin 500 unit/gram topical 1 applic topical DAILY #28 grams 12/26/20 ointment Allergies Allergy/AdvReac Type Severity Reaction Status Date / Time cefaclor [From [facility]] Allergy Skin Rash Unverified 12/12/21 18:15 General Stated Complaint: ETOHWithdr MARIA LUZ: 3 Review of Systems All systems reviewed & are unremarkable except as noted in HPI and below PFSH All Active Problems (Updated 12/12/21 @ 21:01 by Chelle Sanders NP) Alcohol withdrawal (Acute) Tendinitis of long head of biceps brachii of left shoulder (Acute) Bursitis of shoulder, left (Acute) Cervical radiculopathy (Chronic) Alcoholic hepatitis (Acute) Hypomagnesemia (Acute) Hypokalemia (Acute) DVT prophylaxis (Acute) Discharge planning issues (Acute) Macrocytosis (Chronic) Coagulopathy (Acute) Abnormal albumin (Acute) Agitation (Acute) Alcohol withdrawal hallucinosis (Acute) Alcohol abuse (Chronic) Hepatic steatosis (Acute) Medical History Alcohol abuse Surgical History No significant past surgical history Family History Other Family history unobtainable due to patient's condition Social History Smoking/Tobacco Use Status: Current-Occasional Tobacco Type: smokeless tobacco Smoking risk assessment performed?: Yes Alcohol Intake: current Alcohol Intake frequency: 3 or more drinks per day Alcohol type: beer and hard liquor Details: The patient cannot tell me when his last drink was. Drug use: Never Substance use type: does not use Current gender identity: male Do you feel safe at home: Yes Do you feel safe in your relationship?: Yes Exam Narrative Exam Narrative: Constitutional: Alert and oriented x2. Appears stated age. Normal body habitus. Head: Normocephalic, no trauma. Eyes: Pupils PERRL, Red reflex noted, EOM's intact. Eyelids symmetrical without lesions, discharge, or swelling. Scleral icterus noted ENT: Bilateral TM's WNL, External ear normal to inspection, no mastoid TTP, swelling, or erythema, Nasal turbinates WNL, no nasal discharge. Normal dentition, Posterior pharynx WNL, no exudate. Chest: RRR, Normal S1, S2, distal pulses intact. Resp: Lungs clear to auscultation bilaterally, no wheezes, rales, or rhonchi. Abdomen: Soft, non-distended, Normoactive bowel sounds all 4 quads. Musculoskeletal: Normal gait, 5/5 strength to all four extremities. Skin: No suspicious rashes or lesions. Capillary refill less than 2 sec. Neurologic: Cranial nerves II-XII intact. Alert and oriented x 2. Motor: No deficits noted. Sensory: Intact bilaterally all 4 extremities. Reflexes: DTR's intact bilaterally.Bilateral upper extremity tremors noted. CIWA 20 Hematologic/Lymphatic: No ecchymosis, no lymphadenopathy. Course Vital Signs Vital signs: Vital Signs Temperature 37.2 C 12/12/21 18:07 Pulse 107 H 12/12/21 18:07 Respiratory Rate 22 12/12/21 18:07 Blood Pressure 138/86 12/12/21 18:07 Pulse Oximetry 98 12/12/21 18:07 Temperature 37.2 C 12/12/21 18:07 Temperature Source Temporal Artery Scan 12/12/21 18:07 Pulse 107 H 12/12/21 18:07 Respiratory Rate 22 12/12/21 18:07 Respiratory Effort 12/12/21 18:14 Blood Pressure 138/86 12/12/21 18:07 Blood Pressure Position Sitting 12/12/21 18:07 Pulse Oximetry 98 12/12/21 18:07 Oxygen Delivery Method Room Air 12/12/21 18:07 Oxygen Flow Rate 0 12/12/21 18:07 Pain Level 0 12/12/21 18:07 PAWSS Have you Ever Experienced Previous Episodes of Alcohol Withdrawal?: Yes Have you ever Experienced Withdrawal Seizures?: No Have you ever Experienced Delirium Tremens(DT)s?: Yes Have you ever undergone Alcohol Rehabilitation Treatment (i.e, inpt ot outpatient treatment programs)?: Yes Have you ever Experienced Blackouts?: Yes Have you ever Combined Alcohol with other Downers within the last 90 days?: No Have you ever Combined Alcohol with any other Substance of Abuse during the last 90 days?: No Positive Blood Alcohol level on Presentation? [PCS.BAL]: No Evidence of Increased Autonomic Activity (i.e. HR>120, tremor, sweating, agitation, nausea)?: No Result: 4
[2021-12-12] MEDS: LORazepam 1 MG TAB PO/SL ×3 (18:47→23:27)
[2021-12-12 19:12] LABS: Abs Immature Grans 0.01 10^3/uL (0.0-0.06); Absolute Basophil Count 0.08 10^3/uL (0.0-0.2); Absolute Eosinophil Count 0.15 10^3/uL (0.0-0.7); Absolute Lymphocyte Count 2.36 10^3/uL (1.2-3.4); Absolute Monocyte Count 1.22 10^3/uL (0.1-0.8); HCT 43.2 % (40.0-50.0); HGB 14.9 g/dL (13.5-17.5); Immature Grans % 0.1; MCH 33.5 pg (27.0-33.0); MCHC 34.5 % (32.0-36.0); MCV 97 fL (80-95); MPV 10.6 fL (8.0-11.0); Neutrophils % 49.9; RBC 4.45 10^6/uL (4.36-5.78); RDW 12.4 % (11.8-14.1); RDW-SD 44.2 fL; WBC 7.62 10^3/uL (4.4-10.8)
[2021-12-12 19:13] LABS: Bilirubin Negative (Negative); Blood Negative (Negative); Clarity Clear (Clear); Glucose 100 mg/dL (Negative); Ketones Negative (Negative); Leukocyte Esterase Negative (Negative); Nitrite Negative (Negative); Urobilinogen >=8.0 EU/dL (Up TO 0.2)
[2021-12-12 19:18] LABS: *AMPHETAMINES SCREEN URINE Negative (Negative); *BARBITURATES SCREEN URINE Negative (Negative); *BENZODIAZEPINES SCREEN URINE Positive (Negative); Cannabinoids THC Negative (Negative); Cocaine Screen,Urine Negative (Negative); METHADONE URINE SCREEN Negative (Negative); OPIATES URINE SCREEN Negative (Negative)
[2021-12-12 19:27] LABS: INR 1.5 (0.9-1.1); PTT Activated 26.8 sec (21.0-27.5); Prothrombin Time 14.4 sec (9.3-11.0)
[2021-12-12 19:31] LABS: ALT 43 U/L (16-63); AST 60 U/L (15-37); Albumin 3.5 g/dL (3.4-5.0); Alkaline Phosphatase 118 U/L (46-116); Anion Gap 11.2 mmol/L (3-11); BUN 9 mg/dL (7-18); CO2 28.8 mmol/L (21.0-32.0); CREATININE 0.9 mg/dL (0.70-1.30); Calcium 9.7 mg/dL (8.5-10.1); Chloride 100 mmol/L (98-107); Glucose 103 mg/dL (74-106); Lipase 130 U/L (73-393); Magnesium 1.3 mg/dL (1.8-2.4); Potassium 3.1 mmol/L (3.5-5.1); Sodium 140 mmol/L (136-145)
[2021-12-12 19:32] LABS: Tricyclic Antidepressants Negative (Negative)
[2021-12-12 20:01] LABS: Diff Comment PLT Morph Reviewed; Platelet Count 102 10^3/uL (130-400); RBC Morphology Normal
[2021-12-12 21:29] LABS: Source Nasal/Nares
[2021-12-12 21:32] LABS: ALT 45 U/L (16-63); AST 65 U/L (15-37); Albumin 3.5 g/dL (3.4-5.0); Alkaline Phosphatase 118 U/L (46-116); Bilirubin, Direct 1.3 mg/dL (0.0-0.2); Bilirubin, Total 3.8 mg/dL (0.2-1.0); Total Protein 7.8 g/dL (6.4-8.2)
[2021-12-12] MEDS: MAGNESIUM SULFATE 1 GM/100 ML BAG IVPB (21:33)
[2021-12-12] MEDS: Potassium Chloride Liquid 20 MEQ PKT 40 MEQ PO (21:33)
[2021-12-12 21:40] LABS: ETHANOL BLOOD < 3.0 mg/dL (<10)
--- NOTE | 2021-12-12 22:00 | DI.CT_ITS ---
Exam(s) CT HEAD WO EXAM: CT HEAD WO CLINICAL HISTORY: AMS. TECHNIQUE: Imaging Protocol: Axial computed tomography images with coronal and sagittal reformatted images were created and reviewed COMPARISON: No exams were available for comparison FINDINGS: The ventricular system is normal in appearance. No evidence of acute intracranial hemorrhage, mass effect, or midline shift. The orbital structures are unremarkable. The temporal bone structures appear intact. Calvarium: Normal. Visualized Paranasal sinuses/Mastoids: Mastoid air cells are clear. There is opacification of left m axillary antrum with some expansion of the sinus consistent with chronic sinusitis. Please correlate clinically. IMPRESSION: No evidence of acute intracranial process. Presumed chronic left maxillary sinusitis with expansion of the sinus cavity. RADIATION DOSE DELIVERED: 801.65mGy.cm Total DLP 801.65mGy.cm Total DLP !Error CTDIvol DATA REPOSITORY: All CT scans at this facility are submitted to the National Radiology Data Registry (NRDR) Dose Index Registry (DIR) with the [employer] ([employer]). RADIATION OPTIMIZATION: All CT scans at this facility use at least one of these dose optimization te chniques: automated exposure control; mA and/or kV adjustment per patient size (includes targeted exa ms where dose is matched to clinical indication); or iterative reconstruction.
[2021-12-12 22:09] LABS: Acetaminophen < 2 ug/mL (10-30); Salicylate < 2.8 mg/dL (<2.8)
[2021-12-12 22:18] LABS: COVID-19 PCR Negative (Negative)
--- NOTE | 2021-12-12 22:45 | HPE_ITS ---
Assessment and Plan Assessment and plan (1) Alcohol withdrawal: Status: Acute Assessment and plan: He does appear to be having alcohol withdrawal. He received lorazepam in the emergency department. He will be admitted to the intensive care unit for control of his symptoms. I do not believe he has had alcohol withdrawal seizures in the past. I do not think he is a candidate for phenobarbital at this time. (2) Alcoholic hepatitis: Status: Acute Assessment and plan: His liver function tests show that he has an elevated bilirubin in the transaminases and alkaline phosphatase are now extremely high. However his INR is elevated to 1.5. I suspect his severe liver disease associated with the alcoholism. Qualifiers: Ascites presence: without ascites Qualified Code(s): K70.10 - Alcoholic hepatitis without ascites (3) Hypomagnesemia: Status: Acute Assessment and plan: His magnesium level was low when he came in. He has received 1 g of magnesium IV according to the orders. This will be rechecked tomorrow. (4) Hypokalemia: Status: Acute Assessment and plan: His potassium was low and he has been given potassium supplement. Potassium will be rechecked tomorrow. (5) Coagulopathy: Status: Acute Assessment and plan: His INR is elevated to 1.5. He will be given vitamin K orally and INR be rechecked tomorrow. (6) Alcohol withdrawal hallucinosis: Status: Acute Assessment and plan: He will be given thiamine, folic acid, multivitamins and benzodiazepines. His symptoms hopefully will come under control soon. History of Present Illness History of Present Illness Chief Complaint: tremor, hallucinations Narrative: This 30-year-old male is here because of tremors and hallucinations. He lives by himself. His mother was here with him but she is left. He states he has not drank alcohol for approximately 7 days. He says he wants to stop drinking alcohol. He was admitted here about 1 year ago for alcoholic hepatitis and alcohol withdrawal. It is unclear what happened in the last year. He did have some labs drawn last January but there is no other records in the system that I can see. I received a report from the emergency department suggesting that he be admitted because of confusion, tremors and hallucinations. He himself cannot give me much history. He is picking at his IV line quite frequently and there is a nurse in the room with him trying to keep him from pulling his IV out. When I asked him where he was initially said [place] but then he said he was in [place]. He thought today initially was Tuesday but then he corrected himself and said it was Tuesday. He thought it was December 13 and it was 2021. He knew the current and last 2 presidents. He can do serial sevens from 100-86. Says he has had 2 vaccinations for COVID. He says he chews tobacco. He has received lorazepam here in the emergency department but still appears tremulous. Review of Systems Narrative: He denies any chest pain, abdominal pain, nausea or vomiting abdominal pain or back pain. He denies headaches. FORMERLY [facility], [facility] All Active Problems (Updated 12/12/21 @ 21:01 by Chelle Sanders NP) Alcohol withdrawal (Acute) Tendinitis of long head of biceps brachii of left shoulder (Acute) Bursitis of shoulder, left (Acute) Cervical radiculopathy (Chronic) Alcoholic hepatitis (Acute) Hypomagnesemia (Acute) Hypokalemia (Acute) DVT prophylaxis (Acute) Discharge planning issues (Acute) Macrocytosis (Chronic) Coagulopathy (Acute) Abnormal albumin (Acute) Agitation (Acute) Alcohol withdrawal hallucinosis (Acute) Alcohol abuse (Chronic) Hepatic steatosis (Acute) Medical History Alcohol abuse Surgical History No significant past surgical history Family History Other Family history unobtainable due to patient's condition Social History Smoking/Tobacco Use Status: Current-Occasional Tobacco Type: smokeless tobacco Smoking risk assessment performed?: Yes Alcohol Intake: current Alcohol Intake frequency: 3 or more drinks per day Alcohol type: beer and hard liquor Details: The patient cannot tell me when his last drink was. Drug use: Never Substance use type: does not use Current gender identity: male Do you feel safe at home: Yes Do you feel safe in your relationship?: Yes Meds Allergies and Home Medications Allergies Allergy/AdvReac Type Severity Reaction Status Date / Time cefaclor [From Ceclor] Allergy Skin Rash Unverified 12/12/21 18:15 Home Medications Medication Instructions Recorded Confirmed Type bacitracin 500 unit/gram topical 1 applic topical DAILY #28 grams 12/26/20 07/01/21 Rx ointment doxycycline monohydrate 100 mg 100 tab PO DAILY acne 12/12/21 12/12/21 History tablet naltrexone 50 mg tablet 50 tab PO DAILY 12/12/21 12/12/21 History Exam Const General: cooperative, no acute distress and ill appearing Nutritional Appearance: average body habitus Orientation: alert, not oriented to place, not oriented to time and confused [facility] Head: normal to inspection, no palpable skull fracture, normocephalic and atraumatic Teeth and gingiva: poor dentition Eyes Other: There is scleral dryness. Neck Neck: normal visual inspection, no lymphadenopathy and no meningeal signs Resp Auscultation: clear to auscultation bilaterally, no rales, no rhonchi and no wheezes Cardio Rate: regular rate Rhythm: regular rhythm Heart Sounds: S1 normal, S2 normal, no gallops and no murmurs GI Palpation: soft, no hepatosplenomegaly, nontender and No ascites Neuro Cranial Nerves: CN's II-XI intact bilaterally and hearing normal Speech: speech normal Other: He has a moderate tremor. Extrem General: normal to inspection, no calf tenderness bilaterally and no edema Results Labs Result diagrams: 12/12/21 19:01 12/12/21 19:01 Labs: Laboratory Results - last 24 hr 12/12/21 12/12/21 12/12/21 18:40 18:40 19:01 WBC RBC Hgb Hct MCV MCH MCHC RDW Plt Count MPV Immature Gran % Neutrophils % Lymphocytes % Monocytes % Eosinophils % Basophils % Nucleated RBC % Absolute Neutrophils Absolute Lymphocytes Absolute Monocytes Absolute Eosinophils Absolute Basophils RBC Morphology PT INR APTT Sodium 140 Potassium 3.1 L Chloride 100 Carbon Dioxide 28.8 Anion Gap 11.2 H BUN 9 Creatinine 0.9 Estimated GFR/1.73 m2 >= 60.00 Glucose 103 Calcium 9.7 Magnesium 1.3 L Total Bilirubin 4.0 H Conjugated Bilirubin AST 60 H ALT 43 Alkaline Phosphatase 118 H Total Protein 8.0 Albumin 3.5 Lipase 130 Urine Color Yellow Urine Clarity Clear Urine pH 7.0 Ur Specific Emmett 1.020 Urine Protein Negative Urine Ketones Negative Urine Blood Negative Urine Nitrite Negative Urine Bilirubin Negative Urine Urobilinogen >=8.0 Ur Leukocyte Esterase Negative Urine Glucose 100 Salicylates Urine Opiates Screen Negative Urine Methadone Screen Negative Acetaminophen Ur Barbiturates Screen Negative Ur Tricyclics Screen Negative Ur Amphetamines Screen Negative U Benzodiazepines Scrn Positive A Urine Cocaine Screen Negative Ur THC Screen Negative Ethyl Alcohol COVID-19 Source SARS-CoV-2 (PCR) 12/12/21 12/12/21 12/12/21 19:01 19:01 21:10 WBC 7.62 RBC 4.45 Hgb 14.9 Hct 43.2 MCV 97 H MCH 33.5 H MCHC 34.5 RDW 12.4 Plt Count 102 L MPV 10.6 Immature Gran % 0.1 Neutrophils % 49.9 Lymphocytes % 31.0 Monocytes % 16.0 Eosinophils % 2.0 Basophils % 1.0 Nucleated RBC % 0.0 Absolute Neutrophils 3.80 Absolute Lymphocytes 2.36 Absolute Monocytes 1.22 H Absolute Eosinophils 0.15 Absolute Basophils 0.08 RBC Morphology Normal PT 14.4 H INR 1.5 H APTT 26.8 Sodium Potassium Chloride Carbon Dioxide Anion Gap BUN Creatinine Estimated GFR/1.73 m2 Glucose Calcium Magnesium Total Bilirubin 3.8 H Conjugated Bilirubin 1.3 H AST 65 H ALT 45 Alkaline Phosphatase 118 H Total Protein 7.8 Albumin 3.5 Lipase Urine Color Urine Clarity Urine pH Ur Specific Emmett Urine Protein Urine Ketones Urine Blood Urine Nitrite Urine Bilirubin Urine Urobilinogen Ur Leukocyte Esterase Urine Glucose Salicylates Urine Opiates Screen Urine Methadone Screen Acetaminophen Ur Barbiturates Screen Ur Tricyclics Screen Ur Amphetamines Screen U Benzodiazepines Scrn Urine Cocaine Screen Ur THC Screen Ethyl Alcohol COVID-19 Source SARS-CoV-2 (PCR) 12/12/21 12/12/21 12/12/21 21:10 21:10 21:25 WBC RBC Hgb Hct MCV MCH MCHC RDW Plt Count MPV Immature Gran % Neutrophils % Lymphocytes % Monocytes % Eosinophils % Basophils % Nucleated RBC % Absolute Neutrophils Absolute Lymphocytes Absolute Monocytes Absolute Eosinophils Absolute Basophils RBC Morphology PT INR APTT Sodium Potassium Chloride Carbon Dioxide Anion Gap BUN Creatinine Estimated GFR/1.73 m2 Glucose Calcium Magnesium Total Bilirubin Conjugated Bilirubin AST ALT Alkaline Phosphatase Total Protein Albumin Lipase Urine Color Urine Clarity Urine pH Ur Specific Emmett Urine Protein Urine Ketones Urine Blood Urine Nitrite Urine Bilirubin Urine Urobilinogen Ur Leukocyte Esterase Urine Glucose Salicylates < 2.8 Urine Opiates Screen Urine Methadone Screen Acetaminophen < 2 Ur Barbiturates Screen Ur Tricyclics Screen Ur Amphetamines Screen U Benzodiazepines Scrn Urine Cocaine Screen Ur THC Screen Ethyl Alcohol < 3.0 COVID-19 Source Nasal/Nares SARS-CoV-2 (PCR) Negative Last Vital Signs Temp 36.7 C 12/12/21 20:52 Pulse 107 H 12/12/21 18:07 Resp 22 12/12/21 18:07 BP 136/77 12/12/21 20:52 Pulse Ox 95 12/12/21 20:52 PAWSS Have you Ever Experienced Previous Episodes of Alcohol Withdrawal?: Yes Have you ever Experienced Withdrawal Seizures?: No Have you ever Experienced Delirium Tremens(DT)s?: Yes Have you ever undergone Alcohol Rehabilitation Treatment (i.e, inpt ot outpatient treatment programs)?: Yes Have you ever Experienced Blackouts?: Yes Have you ever Combined Alcohol with other Downers within the last 90 days?: No Have you ever Combined Alcohol with any other Substance of Abuse during the last 90 days?: No Positive Blood Alcohol level on Presentation? [PCS.BAL]: No Evidence of Increased Autonomic Activity (i.e. HR>120, tremor, sweating, agitation, nausea)?: No Result: 4
[2021-12-12 22:58] LABS: Ammonia 34 umol/L (11-32)
--- NOTE | 2021-12-12 23:19 | DI.VRAD_ITS ---
PROCEDURE INFORMATION: Exam: CT Head Without Contrast Exam date and time: 12/12/2021 10:34 PM Age: 30 years old Clinical indication: Altered mental status/memory loss; Other: ETOH TECHNIQUE: Imaging protocol: Computed tomography of the head without contrast. COMPARISON: CR XR CERVICAL SPINE COMP 4-5V 04/13/2021 4:08 PM FINDINGS: Brain: No evidence for acute transcortical infarct. No mass effect or midline shift. No extra-axial collection. No acute intracranial hemorrhage. Basal cisterns are patent. Cerebral ventricles: No ventriculomegaly. Paranasal sinuses: Mucosal thickening involving the left maxillary sinus. Mastoid air cells: Visualized mastoid air cells are well aerated. Bones/joints: Unremarkable. No acute fracture. Soft tissues: Unremarkable. IMPRESSION: No evidence for acute transcortical infarct, acute intracranial hemorrhage, or mass effect. Dictated and Authenticated by: Emanuel Fernandez MD. Ordering:ARSEN Corbett MD
[2021-12-12] MEDS: Phytonadione 5 MG TABLET PO (23:28)
[2021-12-13] VITALS (60 sets, daily range): BP systolic 115–153; BP diastolic 67–103; PULSE 75–146; RESP 11–30; TEMP 35.7–37; O2SAT 83–98
[2021-12-13] MEDS: MULTIVITAMIN 10 ML, THIAMINE 100 MG, FOLIC ACID 1 MG in DEXTROSE 5%-0.45% SALINE 1,000 ML 125 ML IV (00:26)
[2021-12-13] MEDS: LORazepam 20 MG/10 ML VIAL IVP ×2 (00:29→04:32)
[2021-12-13 06:30] LABS: INR 1.6 (0.9-1.1); Prothrombin Time 15.3 sec (9.3-11.0)
[2021-12-13 06:35] LABS: ALT 37 U/L (16-63); AST 53 U/L (15-37); Albumin 2.9 g/dL (3.4-5.0); Alkaline Phosphatase 102 U/L (46-116); Anion Gap 8.9 mmol/L (3-11); BUN 9 mg/dL (7-18); CO2 30.1 mmol/L (21.0-32.0); CREATININE 0.8 mg/dL (0.70-1.30); Calcium 8.8 mg/dL (8.5-10.1); Chloride 104 mmol/L (98-107); Glucose 107 mg/dL (74-106); Magnesium 1.5 mg/dL (1.8-2.4); PHOSPHORUS 4.5 mg/dL (2.6-4.7); Sodium 143 mmol/L (136-145); Total Protein 6.7 g/dL (6.4-8.2)
[2021-12-13] MEDS: POTASSIUM CHLORIDE 20 MEQ/100 ML BAG 50 MEQ IVPB ×4 (08:06→13:38)
[2021-12-13] MEDS: MAGNESIUM SULFATE 4 GM/100 ML BAG IVPB (08:06)
--- NOTE | 2021-12-13 08:32 | INITIAL_ITS ---
- If Service Date Differs Date of service: 12/13/21 Time of Service: 08:32 Care Management Initial Assess REASON FOR HOSPITALIZATION:: alcohol withdrawal PAST MEDICAL HISTORY/PAST SURGICAL HISTORY:: All Active Problems (Updated 12/12/21 @ 21:01 by Chelle Sanders NP). Alcohol withdrawal (Acute). Tendinitis of long head of biceps brachii of left shoulder (Acute). Bursitis of shoulder, left (Acute). Cervical radiculopathy (Chronic). Alcoholic hepatitis (Acute). Hypomagnesemia (Acute). Hypokalemia (Acute). DVT prophylaxis (Acute). Discharge planning issues (Acute). Macrocytosis (Chronic). Coagulopathy (Acute). Abnormal albumin (Acute). Agitation (Acute). Alcohol withdrawal hallucinosis (Acute). Alcohol abuse (Chronic). Hepatic steatosis (Acute). Medical History. Alcohol abuse. Surgical History . No significant past surgical history PREVIOUS FUNCTIONAL STATUS/SOCIAL/FAMILY SUPPORTS:: Hussein lives in alone in an apartment in [place], [place]. He works for the [employer]. Hussein is independent at baseline and does not receive any community services. For supports he has one brother and his parents who live in [facility]. CURRENT FUNCTIONAL STATUS:: Heath was lting in bed when CM came to see him. He has had a lot of medication and was quite drowsy. Hussein is unable to have a meaningful conversation at this time. His mother, Chichi Jordan, , was in the room with him and was able to provide some information. She verbalized that she and her hope that Hussein will pursue inpatient rehab when he is ready for discharge. ADVANCE DIRECTIVES:: none Has patient been provided with info about the portal/API?: Yes Did the patient sign up for the portal?: No CODE STATUS:: Full Code INSURANCE COVERAGE / FINANCIAL ISSUES:: Medicaid CURRENT HOME/COMMUNITY SERVICES/EQUIPMENT:: none PRIMARY CARE PHYSICIAN:: Fahad Arellano POTENTIAL DISCHARGE NEEDS:: folllow up with PCP and plan of care. Would likely benefit from [facility] treatment PATIENT/FAMILY EDUCATION NEEDS:: Review of discharge instructions, limitations, activity, follow up plan, Ask Me Three TRANSPORTATION:: via private vehicle with friends/family PLAN:: Hussein will likely discharge home with no new services. CM will offer Maintenance Tech when Hussein is more clear mentally. He will follow up with his PCP and plan of care and transport with friends/family.
--- NOTE | 2021-12-13 08:51 | W.PM.PROGNOT ---
Date of Service Date of service: 12/13/21 Time of Service: 08:30 Assessment and Plan Assessment and plan (1) Alcohol withdrawal: Status: Acute Assessment and plan: Seems to be adequately managed on the benzo pathway. Should withdrawal symptoms escalate, since he is not able to tolerate PO, would switch to small boluses of phenobarbital. 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 As of this time, however, he is not requiring this. Will convert to IV thiamine. (2) Alcohol withdrawal hallucinosis: Status: Acute Assessment and plan: Treat with benzodiazepines as above. May require additional antipsychotics, but no evidence of needing this at this time. (3) Alcoholic hepatitis: Status: Acute Assessment and plan: Discriminant function score of 22.8. Not requiring prednisolone/pentoxyphylline. Check hepatitis serologies and US abdomen. Qualifiers: Ascites presence: without ascites Qualified Code(s): K70.10 - Alcoholic hepatitis without ascites (4) Hypomagnesemia: Status: Acute Assessment and plan: Replete; recheck in am (5) Hypokalemia: Status: Acute Assessment and plan: Replete; recheck at 6 pm today. (6) Coagulopathy: Status: Acute Assessment and plan: Likely due to EtOH hepatitis. Will obtain US abdomen/RUQ to ensure that there is not another hepatic process as well. s/p Vitamin K. Monitor INR. (7) DVT prophylaxis: Status: Acute Assessment and plan: TEDs. Avoid chemical DVT ppx in a coagulopathic patient (who is requiring Vitamin K on this admission) whose cirrhosis/varices status is not certain (8) Discharge planning issues: Status: Acute Assessment and plan: Full code. Keep in ICU. Subjective Subjective Interval history since last seen: While CIWA scores were up to 36 last night, this morning, the patient is asleep, arousable, scoring 0. He is not requiring oxygen. He denies dizziness, headache, chest pain, shortness of breath, nausea. He denies hallucinations. Per nursing, he is drooling when given water and not appropriate for a diet. He has not required oxygen. He is not currently in restraints. Exam Narrative Exam Narrative: General: Somnolent male who is A&Ox1, slurring words slightly, not tremulous, does require repeated verbal stimuli to wake up, not obviously hallucinating with me in the room, answering questions, following commands. HEENT: EOMI, MMM Heart: RRR, no m/r/g Lungs: CTAB Abdomen: soft, nontender, nondistended Extremities: no edema BLEs. Objective Last Vital Signs Temp 36.0 C L 12/13/21 07:15 Pulse 78 12/13/21 07:01 Resp 17 12/13/21 07:01 BP 126/67 12/13/21 07:01 Pulse Ox 98 12/13/21 07:01 Laboratory Results - last 24 hr 12/12/21 12/12/21 12/12/21 18:40 18:40 19:01 WBC RBC Hgb Hct MCV MCH MCHC RDW Plt Count MPV Immature Gran % Neutrophils % Lymphocytes % Monocytes % Eosinophils % Basophils % Nucleated RBC % Absolute Neutrophils Absolute Lymphocytes Absolute Monocytes Absolute Eosinophils Absolute Basophils RBC Morphology PT INR APTT Sodium 140 Potassium 3.1 L Chloride 100 Carbon Dioxide 28.8 Anion Gap 11.2 H BUN 9 Creatinine 0.9 Estimated GFR/1.73 m2 >= 60.00 Glucose 103 Calcium 9.7 Phosphorus Magnesium 1.3 L Total Bilirubin 4.0 H Conjugated Bilirubin AST 60 H ALT 43 Alkaline Phosphatase 118 H Ammonia Total Protein 8.0 Albumin 3.5 Lipase 130 Urine Color Yellow Urine Clarity Clear Urine pH 7.0 Ur Specific Jeannette 1.020 Urine Protein Negative Urine Ketones Negative Urine Blood Negative Urine Nitrite Negative Urine Bilirubin Negative Urine Urobilinogen >=8.0 Ur Leukocyte Esterase Negative Urine Glucose 100 Salicylates Urine Opiates Screen Negative Urine Methadone Screen Negative Acetaminophen Ur Barbiturates Screen Negative Ur Tricyclics Screen Negative Ur Amphetamines Screen Negative U Benzodiazepines Scrn Positive A Urine Cocaine Screen Negative Ur THC Screen Negative Ethyl Alcohol COVID-19 Source SARS-CoV-2 (PCR) 12/12/21 12/12/21 12/12/21 19:01 19:01 21:10 WBC 7.62 RBC 4.45 Hgb 14.9 Hct 43.2 MCV 97 H MCH 33.5 H MCHC 34.5 RDW 12.4 Plt Count 102 L MPV 10.6 Immature Gran % 0.1 Neutrophils % 49.9 Lymphocytes % 31.0 Monocytes % 16.0 Eosinophils % 2.0 Basophils % 1.0 Nucleated RBC % 0.0 Absolute Neutrophils 3.80 Absolute Lymphocytes 2.36 Absolute Monocytes 1.22 H Absolute Eosinophils 0.15 Absolute Basophils 0.08 RBC Morphology Normal PT 14.4 H INR 1.5 H APTT 26.8 Sodium Potassium Chloride Carbon Dioxide Anion Gap BUN Creatinine Estimated GFR/1.73 m2 Glucose Calcium Phosphorus Magnesium Total Bilirubin 3.8 H Conjugated Bilirubin 1.3 H AST 65 H ALT 45 Alkaline Phosphatase 118 H Ammonia Total Protein 7.8 Albumin 3.5 Lipase Urine Color Urine Clarity Urine pH Ur Specific Jeannette Urine Protein Urine Ketones Urine Blood Urine Nitrite Urine Bilirubin Urine Urobilinogen Ur Leukocyte Esterase Urine Glucose Salicylates Urine Opiates Screen Urine Methadone Screen Acetaminophen Ur Barbiturates Screen Ur Tricyclics Screen Ur Amphetamines Screen U Benzodiazepines Scrn Urine Cocaine Screen Ur THC Screen Ethyl Alcohol COVID-19 Source SARS-CoV-2 (PCR) 12/12/21 12/12/21 12/12/21 21:10 21:10 21:25 WBC RBC Hgb Hct MCV MCH MCHC RDW Plt Count MPV Immature Gran % Neutrophils % Lymphocytes % Monocytes % Eosinophils % Basophils % Nucleated RBC % Absolute Neutrophils Absolute Lymphocytes Absolute Monocytes Absolute Eosinophils Absolute Basophils RBC Morphology PT INR APTT Sodium Potassium Chloride Carbon Dioxide Anion Gap BUN Creatinine Estimated GFR/1.73 m2 Glucose Calcium Phosphorus Magnesium Total Bilirubin Conjugated Bilirubin AST ALT Alkaline Phosphatase Ammonia Total Protein Albumin Lipase Urine Color Urine Clarity Urine pH Ur Specific Jeannette Urine Protein Urine Ketones Urine Blood Urine Nitrite Urine Bilirubin Urine Urobilinogen Ur Leukocyte Esterase Urine Glucose Salicylates < 2.8 Urine Opiates Screen Urine Methadone Screen Acetaminophen < 2 Ur Barbiturates Screen Ur Tricyclics Screen Ur Amphetamines Screen U Benzodiazepines Scrn Urine Cocaine Screen Ur THC Screen Ethyl Alcohol < 3.0 COVID-19 Source Nasal/Nares SARS-CoV-2 (PCR) Negative 12/12/21 12/13/21 12/13/21 22:40 05:33 05:33 WBC RBC Hgb Hct MCV MCH MCHC RDW Plt Count MPV Immature Gran % Neutrophils % Lymphocytes % Monocytes % Eosinophils % Basophils % Nucleated RBC % Absolute Neutrophils Absolute Lymphocytes Absolute Monocytes Absolute Eosinophils Absolute Basophils RBC Morphology PT 15.3 H INR 1.6 H APTT Sodium 143 Potassium 3.0 L Chloride 104 Carbon Dioxide 30.1 Anion Gap 8.9 BUN 9 Creatinine 0.8 Estimated GFR/1.73 m2 >= 60.00 Glucose 107 H Calcium 8.8 Phosphorus 4.5 Magnesium 1.5 L Total Bilirubin 3.0 H Conjugated Bilirubin 1.0 H AST 53 H ALT 37 Alkaline Phosphatase 102 Ammonia 34 H Total Protein 6.7 Albumin 2.9 L Lipase Urine Color Urine Clarity Urine pH Ur Specific Jeannette Urine Protein Urine Ketones Urine Blood Urine Nitrite Urine Bilirubin Urine Urobilinogen Ur Leukocyte Esterase Urine Glucose Salicylates Urine Opiates Screen Urine Methadone Screen Acetaminophen Ur Barbiturates Screen Ur Tricyclics Screen Ur Amphetamines Screen U Benzodiazepines Scrn Urine Cocaine Screen Ur THC Screen Ethyl Alcohol COVID-19 Source SARS-CoV-2 (PCR) PAWSS Have you Been Recently Intoxicated or Drunk Within the Last 30 days?: Yes Have you Ever Experienced Previous Episodes of Alcohol Withdrawal?: Yes Have you ever Experienced Withdrawal Seizures?: No Have you ever Experienced Delirium Tremens(DT)s?: Yes Have you ever undergone Alcohol Rehabilitation Treatment (i.e, inpt ot outpatient treatment programs)?: No Have you ever Experienced Blackouts?: No Have you ever Combined Alcohol with other Downers within the last 90 days?: No Have you ever Combined Alcohol with any other Substance of Abuse during the last 90 days?: No Positive Blood Alcohol level on Presentation? [PCS.BAL]: Yes Evidence of Increased Autonomic Activity (i.e. HR>120, tremor, sweating, agitation, nausea)?: Yes Result: 5
[2021-12-13] MEDS: Normal Saline 500 ML 10 ML IV (09:15)
[2021-12-13] MEDS: THIAMINE 100 MG in Normal Saline 100 ML 200 MG IVPB (09:36)
[2021-12-13] MEDS: Lidocaine 2% Jelly 6 ML SYR UR (10:30)
[2021-12-13 18:13] LABS: Anion Gap 5.2 mmol/L (3-11); BUN 8 mg/dL (7-18); CO2 30.8 mmol/L (21.0-32.0); CREATININE 0.7 mg/dL (0.70-1.30); Calcium 8.5 mg/dL (8.5-10.1); Chloride 105 mmol/L (98-107); Glucose 114 mg/dL (74-106); Potassium 3.2 mmol/L (3.5-5.1); Sodium 141 mmol/L (136-145)
[2021-12-13] MEDS: LORazepam 1 MG TAB PO/SL (23:51)
[2021-12-14] VITALS (22 sets, daily range): BP systolic 117–142; BP diastolic 73–91; PULSE 72–94; RESP 14–20; TEMP 36.5–37.2; O2SAT 93–100
[2021-12-14] MEDS: LORazepam 1 MG TAB PO/SL (05:30)
[2021-12-14 06:10] LABS: Abs Immature Grans 0.01 10^3/uL (0.0-0.06); Absolute Basophil Count 0.05 10^3/uL (0.0-0.2); Absolute Eosinophil Count 0.13 10^3/uL (0.0-0.7); Absolute Lymphocyte Count 1.15 10^3/uL (1.2-3.4); Absolute Monocyte Count 0.48 10^3/uL (0.1-0.8); Absolute Neutrophil Count 1.41 10^3/uL (1.2-6.7); Basophils % 1.5; HCT 43.1 % (40.0-50.0); HGB 14.9 g/dL (13.5-17.5); Immature Grans % 0.3; Lymphocytes % 35.6; MCH 33.9 pg (27.0-33.0); MCHC 34.6 % (32.0-36.0); MCV 98 fL (80-95); MPV 10.3 fL (8.0-11.0); Monocytes % 14.9; Neutrophils % 43.7; RBC 4.39 10^6/uL (4.36-5.78); RDW 12.5 % (11.8-14.1); RDW-SD 45.2 fL; WBC 3.23 10^3/uL (4.4-10.8)
[2021-12-14 06:24] LABS: INR 1.4 (0.9-1.1); Prothrombin Time 13.5 sec (9.3-11.0)
[2021-12-14 06:49] LABS: ALT 51 U/L (16-63); AST 67 U/L (15-37); Alkaline Phosphatase 99 U/L (46-116); Anion Gap 8.6 mmol/L (3-11); BUN 10 mg/dL (7-18); Bilirubin, Direct 1.2 mg/dL (0.0-0.2); Bilirubin, Total 3.9 mg/dL (0.2-1.0); CO2 29.4 mmol/L (21.0-32.0); CREATININE 0.7 mg/dL (0.70-1.30); Calcium 8.8 mg/dL (8.5-10.1); Chloride 104 mmol/L (98-107); Glucose 86 mg/dL (74-106); Magnesium 1.7 mg/dL (1.8-2.4); Potassium 3.2 mmol/L (3.5-5.1); Sodium 142 mmol/L (136-145); Total Protein 7.1 g/dL (6.4-8.2)
[2021-12-14 07:06] LABS: Platelet Count 74 10^3/uL (130-400)
[2021-12-14 07:07] LABS: Diff Comment Diff Reviewed; RBC Morphology Normal
[2021-12-14 07:37] LABS: Folate 10.5 ng/mL (8.6-20.0); Vitamin B12 1081 pg/mL (193-986)
--- NOTE | 2021-12-14 08:00 | DI.US_ITS ---
Exam(s) US ABDOMEN EXAM: US ABDOMEN CLINICAL HISTORY: transaminitis, h/o EtOH abuse TECHNIQUE: Ultrasound abdomen performed using standard protocol. COMPARISON: US US ABDOMEN from 12/22/2020 FINDINGS: ABDOMINAL AORTA AND IVC: Visualized portions normal caliber. PANCREAS: Normal where visualized. LIVER: The liver has a lobulated contour. It measures 14.2 cm long. No hepatic mass is seen. Hepat opedal flow in the Portal Vein. GALLBLADDER:No evidence of cholelithiasis. No evidence of wall thickening. No pericholecystic fluid i dentified. BILIARY SYSTEM: Common bile duct measures 1.2 cm. No intrahepatic biliary ductal dilation. CRISTINA'S SIGN: Negative. KIDNEYS: Kidneys are symmetric in size. No evidence of renal calculi. No evidence of hydronephrosis. No renal mass or cyst identified. SPLEEN: Upper limits of normal at 12.2 cm. ASCITES: None seen. IMPRESSION: 1. Lobulated contour of the liver suggesting hepatic cirrhosis. No hepatic mass is seen. 2. Extrahepatic biliary ductal dilatation at 1.2 cm. 3. No evidence of cholelithiasis. DATA REPOSITORY:
[2021-12-14] MEDS: Potassium Chloride 20 MEQ TABCR 40 MEQ PO (10:15)
[2021-12-14] MEDS: Multivitamin TAB 1 TAB PO (10:16)
[2021-12-14] MEDS: Thiamine 100 MG TAB PO (10:16)
[2021-12-14] MEDS: MAGNESIUM SULFATE 2 GM/50 ML BAG IVPB (10:16)
[2021-12-14] MEDS: POTASSIUM CHLORIDE 20 MEQ/100 ML BAG 50 MEQ IVPB (10:17)
--- NOTE | 2021-12-14 10:34 | W.PM.PROGNOT ---
Date of Service Date of service: 12/14/21 Time of Service: 08:30 Assessment and Plan Assessment and plan (1) Alcohol withdrawal: Status: Acute Assessment and plan: Seems to be adequately managed on the benzo pathway and much improved. Ok to transfer to medical surgical floor. Advance diet as tolerated. Resume MVI and PO thiamine.. (2) Alcohol withdrawal hallucinosis: Status: Acute Assessment and plan: Treat with benzodiazepines as above. (3) Alcoholic hepatitis: Status: Acute Assessment and plan: Discriminant function score of 15.4 this am, down from 22.8 yesterday, improving. Not requiring prednisolone/pentoxyphylline. US abdomen suggestive of cirrhosis (does also have extrahepatic biliary ductal dilatation; no stones or cholecystitis). Would benefit from an outpatient EGD. Qualifiers: Ascites presence: without ascites Qualified Code(s): K70.10 - Alcoholic hepatitis without ascites (4) Hypomagnesemia: Status: Acute Assessment and plan: Replete; recheck in am (5) Thrombocytopenia: Status: Chronic Assessment and plan: Worse today. Suspect this is due to EtOH, splenic sequestration, decreased thrombopoetin production. B12 level adequate. Avoid chemical DVT ppx and monitor for bleeding. (6) Hypokalemia: Status: Acute Assessment and plan: Replete; recheck in am (7) Coagulopathy: Status: Acute Assessment and plan: Likely due to EtOH hepatitis in addition to cirrhosis. s/p Vitamin K. Monitor INR. (8) DVT prophylaxis: Status: Acute Assessment and plan: TEDs. Avoid chemical DVT ppx in a coagulopathic and thrombocytopenic patient (9) Discharge planning issues: Status: Acute Assessment and plan: Full code. Transfer to medical surgical floor. Discussed with Dr Hartley. Subjective Subjective Interval history since last seen: Doing better as far as EtOH w/d in the last 24 hrs. CIWA score was 6-4-4-6. Received a total of 2 mg of PO ativan overnight. Denies dizziness, chest pain, shortness of breath, nausea. Had a amin catheter placed yesterday for urinary retention. It is bothering him but he will try to keep it in for now with plans for VT tomorrow. More alert today. Tolerating a clear liquid diet. [place] to be stable to transfer to medical surgical floor. Exam Narrative Exam Narrative: General: male who is asleep, wakes up easily, A&Ox3, does fall asleep during our conversation; not tremulous, no asterexis. Following commands appropriately. HEENT: EOMI, MMM Heart: RRR, no m/r/g Lungs: CTAB Abdomen: soft, nontender, nondistended Extremities: no edema BLEs. Objective Last Vital Signs Temp 36.8 C 12/14/21 00:19 Pulse 72 12/14/21 07:01 Resp 16 12/14/21 07:01 BP 132/81 12/14/21 07:01 Pulse Ox 95 12/14/21 07:01 Laboratory Results - last 24 hr 12/13/21 12/14/21 12/14/21 17:52 05:05 05:05 WBC 3.23 L RBC 4.39 Hgb 14.9 Hct 43.1 MCV 98 H MCH 33.9 H MCHC 34.6 RDW 12.5 Plt Count 74 L MPV 10.3 Immature Gran % 0.3 Neutrophils % 43.7 Lymphocytes % 35.6 Monocytes % 14.9 Eosinophils % 4.0 Basophils % 1.5 Nucleated RBC % 0.0 Absolute Neutrophils 1.41 Absolute Lymphocytes 1.15 L Absolute Monocytes 0.48 Absolute Eosinophils 0.13 Absolute Basophils 0.05 RBC Morphology Normal PT INR Sodium 141 142 Potassium 3.2 L 3.2 L Chloride 105 104 Carbon Dioxide 30.8 29.4 Anion Gap 5.2 8.6 BUN 8 10 Creatinine 0.7 0.7 Estimated GFR/1.73 m2 >= 60.00 >= 60.00 Glucose 114 H 86 Calcium 8.5 8.8 Magnesium 1.7 L Total Bilirubin 3.9 H Conjugated Bilirubin 1.2 H AST 67 H ALT 51 Alkaline Phosphatase 99 Total Protein 7.1 Albumin 3.0 L Vitamin B12 1081 H Folate 10.5 12/14/21 05:05 WBC RBC Hgb Hct MCV MCH MCHC RDW Plt Count MPV Immature Gran % Neutrophils % Lymphocytes % Monocytes % Eosinophils % Basophils % Nucleated RBC % Absolute Neutrophils Absolute Lymphocytes Absolute Monocytes Absolute Eosinophils Absolute Basophils RBC Morphology PT 13.5 H INR 1.4 H Sodium Potassium Chloride Carbon Dioxide Anion Gap BUN Creatinine Estimated GFR/1.73 m2 Glucose Calcium Magnesium Total Bilirubin Conjugated Bilirubin AST ALT Alkaline Phosphatase Total Protein Albumin Vitamin B12 Folate PAWSS Have you Been Recently Intoxicated or Drunk Within the Last 30 days?: Yes Have you Ever Experienced Previous Episodes of Alcohol Withdrawal?: Yes Have you ever Experienced Withdrawal Seizures?: No Have you ever Experienced Delirium Tremens(DT)s?: Yes Have you ever undergone Alcohol Rehabilitation Treatment (i.e, inpt ot outpatient treatment programs)?: No Have you ever Experienced Blackouts?: No Have you ever Combined Alcohol with other Downers within the last 90 days?: No Have you ever Combined Alcohol with any other Substance of Abuse during the last 90 days?: No Positive Blood Alcohol level on Presentation? [PCS.BAL]: Yes Evidence of Increased Autonomic Activity (i.e. 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
--- NOTE | 2021-12-14 16:41 | PDOC.CMPRO ---
- If Service Date Differs Date of service: 12/14/21 Time of Service: 16:41 Care Management Progress Note S/O: Hussein continues to be treated for alcohol withdrawal. He was moved out to the Med/Surg floor today. CM to page debt recovery officer to discuss OSKAR options tomorrow. CM continues to follow. A: 30 year old male admitted to [facility] 12/12/21 for alcohol withdrawal P: Hussein will likely discharge home with no new services. will offer Hand Sewer when Hussein is more clear mentally. He will follow up with his PCP and plan of care and transport with friends/family.
[2021-12-14] MEDS: Normal Saline Flush 10 ML SYR IVP (20:09)
[2021-12-15 03:25] VITALS: BP 130/87; PULSE 85; RESP 18; TEMP 37.5; O2SAT 98
[2021-12-15 06:10] VITALS: TEMP 37.1
[2021-12-15 06:16] LABS: Abs Immature Grans 0.01 10^3/uL (0.0-0.06); Absolute Basophil Count 0.06 10^3/uL (0.0-0.2); Absolute Eosinophil Count 0.19 10^3/uL (0.0-0.7); Absolute Lymphocyte Count 1.55 10^3/uL (1.2-3.4); Absolute Monocyte Count 0.92 10^3/uL (0.1-0.8); Absolute Neutrophil Count 1.97 10^3/uL (1.2-6.7); Basophils % 1.3; HCT 44.8 % (40.0-50.0); HGB 14.9 g/dL (13.5-17.5); Immature Grans % 0.2; MCH 33.3 pg (27.0-33.0); MCHC 33.3 % (32.0-36.0); MCV 100 fL (80-95); MPV 9.7 fL (8.0-11.0); Monocytes % 19.6; Neutrophils % 41.9; RBC 4.48 10^6/uL (4.36-5.78); RDW 12.6 % (11.8-14.1); RDW-SD 46.6 fL
[2021-12-15 06:29] LABS: INR 1.4 (0.9-1.1); Prothrombin Time 13.6 sec (9.3-11.0)
[2021-12-15 06:32] LABS: ALT 43 U/L (16-63); AST 44 U/L (15-37); Alkaline Phosphatase 102 U/L (46-116); Anion Gap 3.7 mmol/L (3-11); BUN 9 mg/dL (7-18); Bilirubin, Direct 0.8 mg/dL (0.0-0.2); CO2 31.3 mmol/L (21.0-32.0); CREATININE 0.8 mg/dL (0.70-1.30); Calcium 8.9 mg/dL (8.5-10.1); Chloride 104 mmol/L (98-107); Glucose 105 mg/dL (74-106); Magnesium 1.6 mg/dL (1.8-2.4); Potassium 3.4 mmol/L (3.5-5.1); Sodium 139 mmol/L (136-145)
[2021-12-15 07:00] LABS: Platelet Count 94 10^3/uL (130-400)
[2021-12-15 08:50] VITALS: BP 137/89; PULSE 90; RESP 18; TEMP 36.7; O2SAT 100
[2021-12-15] MEDS: Thiamine 100 MG TAB PO (08:51)
[2021-12-15] MEDS: Multivitamin TAB 1 TAB PO (08:51)
--- NOTE | 2021-12-15 10:44 | PDOC.CMPRO ---
- If Service Date Differs Date of service: 12/15/21 Time of Service: 10:44 Care Management Progress Note S/O: Hussein continues to be treated for alcohol withdrawal. CM paged acid recovery operator to discuss OSKAR options with Hussein. CM continues to follow. A: 30 year old male admitted to [facility] 12/12/21 for alcohol withdrawal P: Hussein will likely discharge home with no new services. Display Screen Fabricator reviewed OSKAR options with Hussein. He will follow up with his PCP and plan of care and transport with friends/family.
[2021-12-15 11:10] VITALS: BP 126/88; PULSE 88; RESP 18; TEMP 36.6; O2SAT 97
--- NOTE | 2021-12-15 12:15 | DSE_ITS ---
Date of service: 12/15/21 Time of Service: 12:15 DS: Diagnosis Discharge Diagnosis (1) Alcohol withdrawal: Status: Acute (2) Alcohol withdrawal hallucinosis: Status: Acute (3) Alcoholic hepatitis: Status: Acute (4) Hypomagnesemia: Status: Acute (5) Thrombocytopenia: Status: Chronic (6) Hypokalemia: Status: Acute (7) Coagulopathy: Status: Acute Discharge Plan Disposition Patient Disposition: HOME Condition: Stable Discharge Details Reason For Visit: Alcohol Withdrawal Admit Date/Time: 12/12/21 20:59 Admit Provider: Trung Rosado Attending Provider: Trung Rosado Primary Care Provider: Fahad Arellano Hospital Course Hospital Course: This is a 30 year old male with past medical history of alcohol abuse, alcoholic hepatitis with coagulopathy who presented to the ED after stopping drinking 6 days prior, with symptoms of withdrawal. He was given lorazepam in the ED and admitted to the ICU under hospitalist services for further treatment and monitoring. He was experiencing hallucinations and tremors but did not experience any withdrawal seizures and symptoms remained controlled on lorazepam. he was downstepped to med-surg status. Hospital course included electrolyte repletion for hypokalemia and hypomagnesemia and thrombocytopenia suspected due to ETOH use. His B 12 level was checked and adequate. He received vitamin K, INR stable at 1.4 from 1.6. Hospital course also complicated with urinary retention, requiring indwelling amin catheter. It was removed am of discharged and he was voiding well with no residual seen on post void bladder scan prior to leaving. His withdrawal symptoms resolved and he returned to baseline. He was eating and drinking and scoring zero on ciwa. He was seen by power and recovery supervisor and plans to continue AA when discharged. He is stable and being discharged to home with no services. He will follow outpatient with power and recovery supervisor as planned. discharge discussed with DR Loyola Home Meds and New Rx's Prescriptions: Continued naltrexone 50 mg tablet 50 tab PO DAILY Label Comments: TAKE ONE TABLET BY MOUTH EVERY DAY doxycycline monohydrate 100 mg tablet 100 tab PO DAILY Label Comments: TAKE ONE TABLET BY MOUTH EVERY DAY bacitracin 500 unit/gram ointment 1 applic topical DAILY Qty: 28 0RF Rx Instructions: apply a thin layer to skin lesion on back until healed Discharge Instructions Instructions: Abuse of Alcohol (DC), Alcohol Withdrawal (DC) Referrals: Fahad Arellano MD [Primary Care Provider] - Activity:: Activity as Tolerated Equipment/Supplies:: No Equipment Needed Diet:: As Tolerated Discharge Orders Discharge Orders: Discharge Order (Routine); Ordered 12/15/21 Ordered By: Sabrina Choe DS: Summary Time Spent with Patient providing and/or coordinating discharge services: Less than 30 minutes Status at Discharge Functional status at discharge: independent ambulation Overall status at discharge: patient is back to baseline Mental Status: mental status grossly normal Speech and Movement: speech and movement normal Mood: congruent mood Affect: normal affect Exam Const General: cooperative and no acute distress Nutritional Appearance: average body habitus Orientation: alert HENCA Head: normocephalic and atraumatic Neck Neck: normal visual inspection Resp Auscultation: clear to auscultation bilaterally Cardio Rate: regular rate Rhythm: regular rhythm GI Palpation: soft and nontender Neuro Cranial Nerves: CN's II-XI intact bilaterally and hearing normal Speech: speech normal Extrem General: normal to inspection and no edema Psych Mental Status: mental status grossly normal Speech and Movement: speech and movement normal Mood: congruent mood Affect: normal affect DS: Data Vitals/I&O Vitals and I&O: Vital Signs Temperature 36.6 C 12/15/21 11:10 Temperature Source Tympanic 12/15/21 11:10 Pulse 88 12/15/21 11:10 Pulse Rhythm Regular 12/15/21 11:39 Pulse 92 H 12/14/21 10:00 Respiratory Rate 18 12/15/21 11:10 Respiratory Effort Non-Labored 12/15/21 11:39 Respiratory Depth Normal 12/15/21 11:39 Respiratory Pattern Normal 12/15/21 11:39 Blood Pressure 126/88 12/15/21 11:10 Blood Pressure Mean 92 12/14/21 10:00 Blood Pressure Position Supine 12/14/21 00:19 Pulse Oximetry 97 12/15/21 11:10 Oxygen Delivery Method Room Air 12/15/21 11:10 Oxygen Flow Rate 0 12/15/21 11:10 Pain Level 0 12/15/21 11:10 Intake & Output 12/14/21 12/15/21 12/15/21 23:59 11:59 23:59 Intake Total 370 / 920 620 / 620 Output Total 2250 / 3125 1200 / 1200 Balance -1880 / -2205 -580 / -580 Weight 82.146 kg Intake: IV 170 / 170 Oral 200 / 750 600 / 600 Output: Urine 2250 / 3125 1200 / 1200 Other: Urine Color Yellow Yellow Urine Appearance Clear Clear Comment unmeasured Stool Size Large Stool Characteristics Soft Voiding Methods Toilet Data Completed and Pending Labs on day of discharge: Labs from last 24 hours 12/15/21 12/15/21 12/15/21 05:51 05:51 05:51 WBC 4.70 RBC 4.48 Hgb 14.9 Hct 44.8 MCV 100 H MCH 33.3 H MCHC 33.3 RDW 12.6 Plt Count 94 L MPV 9.7 Immature Gran % 0.2 Neutrophils % 41.9 Lymphocytes % 33.0 Monocytes % 19.6 Eosinophils % 4.0 Basophils % 1.3 Nucleated RBC % 0.0 Absolute Neutrophils 1.97 Absolute Lymphocytes 1.55 Absolute Monocytes 0.92 H Absolute Eosinophils 0.19 Absolute Basophils 0.06 PT 13.6 H INR 1.4 H Sodium 139 Potassium 3.4 L Chloride 104 Carbon Dioxide 31.3 Anion Gap 3.7 BUN 9 Creatinine 0.8 Estimated GFR/1.73 m2 >= 60.00 Glucose 105 Calcium 8.9 Magnesium 1.6 L Total Bilirubin 2.0 H Conjugated Bilirubin 0.8 H AST 44 H ALT 43 Alkaline Phosphatase 102 Total Protein 7.0 Albumin 3.0 L PFSH All Active Problems (Updated 12/14/21 @ 10:42 by Yasmine Loyola MD) Thrombocytopenia (Chronic) Discharge planning issues (Acute) DVT prophylaxis (Acute) Alcohol withdrawal (Acute) Tendinitis of long head of biceps brachii of left shoulder (Acute) Bursitis of shoulder, left (Acute) Cervical radiculopathy (Chronic) Alcoholic hepatitis (Acute) Hypomagnesemia (Acute) Hypokalemia (Acute) DVT prophylaxis (Acute) Discharge planning issues (Acute) Macrocytosis (Chronic) Coagulopathy (Acute) Abnormal albumin (Acute) Agitation (Acute) Alcohol withdrawal hallucinosis (Acute) Alcohol abuse (Chronic) Hepatic steatosis (Acute) Medical History Alcohol abuse Surgical History No significant past surgical history Family History Other Family history unobtainable due to patient's condition Social History Smoking/Tobacco Use Status: Current-Occasional Tobacco Type: smokeless tobacco Smoking risk assessment performed?: Yes Alcohol Intake: current Alcohol Intake frequency: 3 or more drinks per day Alcohol type: beer and hard liquor Details: The patient cannot tell me when his last drink was. Drug use: Never Substance use type: does not use Current gender identity: male Do you feel safe at home: Yes Do you feel safe in your relationship?: Yes
[2021-12-15 12:18] LABS: HBs Antibody, Qual Negative (See Note); HBs Antibody, Quant <3.1 mIU/mL (See Note); Hepatitis B Core Antibody Negative (Negative); Hepatitis B surface Ag Negative (Negative); Hepatitis C Ab w Rflx HCV PCR Negative (Negative)
--- NOTE | 2021-12-15 14:33 | CMDISCH_ITS ---
- If Service Date Differs Date of service: 12/15/21 Time of Service: 14:34 LACE Index Scoring Tool - Questions: Length of Stay (in days): 3 Acuity (Admit via E.D.?): Yes E.D. Visits: 1 - Answers: Total Score: 7 Risk of Readmission: Low Risk Care Management Discharge Reason for Hospitalization: alcohol withdrawal Discharge Plan: Hussein will likely discharge home with no new services. offered Technical Support 1 Software Engineer which Hussein reports he will be following up with. Hussein's mother called to review discharge plan, Hussein expressed not wanting this engineering technical writer to engage with his mother, his wishes will be respected as he can update his mother as he wishes. He stated his brother will be transporting him home. Patient/Family Education Needs: Review discharge instructions, discuss Ask Me Three.
== END 2021-12-15 13:41 | disposition home or self-care (01) | DRG 897 ==
LOC: ER 21:48 → ICU 22:40 → MS 12-14 11:00
PROVIDERS: Internal Medicine; Admitting Provider Family Medicine; Emergency Provider Registered Nurse Emergency; PCP Internal Medicine; Visit Provider Family Medicine
DX: F10.151 Alcohol abuse with alcohol-induced psychotic disorder with hallucinations (principal); F10.132 Alcohol abuse with withdrawal with perceptual disturbance; D68.9 Coagulation defect, unspecified; K70.10 Alcoholic hepatitis without ascites; E87.6 Hypokalemia; E83.42 Hypomagnesemia; M75.22 Bicipital tendinitis, left shoulder; M75.52 Bursitis of left shoulder; M54.12 Radiculopathy, cervical region; D75.89 Other specified diseases of blood and blood-forming organs; K76.0 Fatty (change of) liver, not elsewhere classified; R45.1 Restlessness and agitation; F17.220 Nicotine dependence, chewing tobacco, uncomplicated; D69.59 Other secondary thrombocytopenia; R33.9 Retention of urine, unspecified
CPT/HCPCS: 36415; 80048; 80053; 80076; 80307; 83690; 86704; 86706; 86803; 87340; 87635; 96365; 99285; 70450; 76700; 80320; 80329; 81003; 82140; 82607; 82746; 83735; 84100; 85025; 85610; 85730; 99222; 99233; 99238; J3475; J3480; J3490